=== PATIENT | male | born 1940 | race Caucasian/White ===

== ENCOUNTER 2016-10-17 13:21 | Inpatient (IN) | payer MEDICARE ==
[~2016-10-17] VITALS: Ht 182.9 cm; Wt 98.1 kg
[~2016-10-17 13:21] MED LIST: CARV25TA2 PO; CHOL200074 PO; CYCL10TA2 PO; OMEG500C PO; SIMV20TA3 PO; advair; hydrocodone
[2016-10-17] MEDS ORDERED: IPRATRPIUM/ALBUTEROL 0.5/2.5MG 3 ML NEBU. NEB ONE (13:45)
[2016-10-17] MEDS ORDERED: ONDANSETRON PF 4 MG/2 ML VIAL. IV PRN (13:45)
[2016-10-17] MEDS ORDERED: MORPHINE SULFATE 2 MG/ML DISP.SYRIN. IV PRN (13:45)
[2016-10-17] MEDS ORDERED: methylPREDNISolone SOD SUCC PF 125 MG/2 ML VIAL. IV ONE (13:45)
--- NOTE | 2016-10-17 14:06 | RAD ---
Indication chest pain and shortness of air A single view of the chest was obtained. Comparison is made to an examination 06/25/2010. The heart and pulmonary vessels are within normal limits. Acute parenchymal infiltrate in either lung is not seen. Significant pleural fluid is not present. There is no pneumothorax. IMPRESSION: No acute or focal process seen in the chest.
--- NOTE | 2016-10-17 14:13 | PHYS DOC ---
Past Medical History Past Medical History: CAD, COPD, Diverticulosis, Hypertension Additional Past Medical Histor: Osteoarthritis Past Surgical History: Appendectomy, Tonsillectomy Additional Past Surgical Histo: cardiac stent, hip, neck fixation with hardware , back Alcohol Use: None Drug Use: None Adult General Chief Complaint Chief Complaint: SHORTNESS OF BREATH HPI HPI 76-year-old male presenting to the emergency Department shortness of breath. He has a history of COPD and reports worsening COPD over the past few days. His triggers are changes in weather and humidity. Location lungs. Mildly improved with medications at home. Today he reports his symptoms just worsened and he needed to come into the hospital. It is worse with exertion. Nonradiating. He denies any pain. Review of systems was negative for chest pain abdominal pain nausea vomiting fevers chills cough. All other review of systems is negative unless otherwise noted in history of present illness. ED course: 76-year-old gentleman presenting to the emergency department today with worsening shortness of breath. Patient is at baseline at home on 4 L nasal cannula. The patient was continued on 4 L here and saturating mid 90s. Pertinent physical examination showed diffuse wheezing in the lungs bilaterally with prolonged respiratory phase and prolonged inspiratory phase. The patient was given nebulizer DuoNeb in the emergency department along with corticosteroids and then admitted for a COPD exacerbation. The patient was admitted to Dr. Avalos for further evaluation workup and care. I placed a pulmonary consult in. EKG and blood work obtained. EKG of the patient shows sinus rhythm with a regular rate. [place] is mildly leftward. Intervals are within normal limits. ST segments are congruent. Of note there are frequent PVCs. Cardiology was consulted as well. Review of Systems Review of Systems SEE ABOVE. Current Medications Current Medications Current Medications Medications (Trade) Dose Ordered Sig/Jackson Start Time Stop Time Status Last Admin Dose Admin Albuterol/ Ipratropium (Duoneb) 3 ml RTQID 10/17/16 16:00 10/18/16 15:59 Methylprednisolone Sodium Succinate (SOLU-Medrol 125MG VIAL) 125 mg 1X ONCE 10/17/16 13:45 10/17/16 13:46 DC Morphine Sulfate 2 mg PRN Q2HR PRN 10/17/16 13:45 10/18/16 13:44 Ondansetron HCl (Zofran) 4 mg PRN Q8HRS PRN 10/17/16 13:45 10/18/16 13:44 Allergies Allergies Allergies Coded Allergies Type Severity Reaction Last Updated Verified Penicillins Allergy Unknown swelling 08/17/13 Yes Physical Exam Physical Exam SEE ABOVE Constitutional: Well developed, well nourished, no acute distress, non-toxic appearance. [] HENT: Normocephalic, atraumatic, bilateral external ears normal, oropharynx moist, no oral exudates, nose normal. [] Eyes: PERRLA, EOMI, conjunctiva normal, no discharge. [] Neck: Normal range of motion, no tenderness, supple, no stridor. [] Cardiovascular:Heart rate regular rhythm, no murmur [] Lungs & Thorax: SEE ABOVE Abdomen: Bowel sounds normal, soft, no tenderness, no masses, no pulsatile masses. [] Skin: Warm, dry, no erythema, no rash. [] Back: No tenderness, no CVA tenderness. [] Extremities: No tenderness, no cyanosis, no clubbing, ROM intact, no edema. [] Neurologic: Alert and oriented X 3, normal motor function, normal sensory function, no focal deficits noted. [] Psychologic: Affect normal, judgement normal, mood normal. [] Current Patient Data Vital Signs Vital Signs Date Time Temp Pulse Resp B/P (MAP) Pulse Ox O2 Delivery O2 Flow Rate FiO2 10/17/16 13:50 97 Nasal Cannula 4.0 10/17/16 13:27 98.1 61 22 156/100 (118) 98.1 EKG EKG [] Radiology/Procedures Radiology/Procedures Chest x-ray reviewed by myself shows no obvious infiltrate or pneumothorax present. No obvious acute cardiopulmonary process present.[] Course & Med Decision Making Course & Med Decision Making Pertinent Labs and Imaging studies reviewed. (See chart for details) [] Dragon Disclaimer Dragon Disclaimer This electronic medical record was generated, in whole or in part, using a voice recognition dictation system. Departure Departure Impression: Primary Impression: COPD (chronic obstructive pulmonary disease) Additional Impressions: COPD exacerbation Shortness of breath Disposition: ADMITTED INPATIENT Admitting Physician: Berenice Avalos Condition: STABLE Problem Qualifiers VERENICE ALAS MD Oct 17, 2016 14:13
--- NOTE | 2016-10-17 14:17 | EKG ---
[facility] [address] [place] [address] Test Date: 2016-10-17 Test Time: 13:29:21 Pat Name: MELISA JARRELL Department: Room: Gender: M Director Of Philanthropy: : 1940 Requested By: VERENICE ALAS Order Number: [id number] Reading MD: Measurements Intervals [place] Rate: 90 P: 63 RI: 188 QRS: -36 QRSD: 94 T: 56 QT: 364 QTc: 449 Interpretive Statements SINUS RHYTHM VENTRICULAR PREMATURE COMPLEX(ES), BIGEMINY ABNORMAL LEFT AXIS DEVIATION LEFT ANTERIOR FASCICULAR BLOCK RI6.01 Unconfirmed report No previous ECG available for comparison
[2016-10-17 14:24] LABS: BASO # 0.2 x10^3/uL (0.0-0.2); BASO % 2 % (0-3); EOS % 12 % (0-3); HEMATOCRIT 47.2 % (39.0-53.0); HEMOGLOBIN 16.2 g/dL (13.0-17.5); LYMPH # 1.8 x10^3/uL (1.0-4.8); LYMPH % 19 % (24-48); MEAN CORPUSCULAR HEMOGLOBIN 30 pg (25-35); MEAN CORPUSCULAR HGB CONC 34 g/dL (31-37); MEAN CORPUSCULAR VOLUME 88 fL (79-100); MONO % 9 % (0-9); NEUT % 58 % (31-73); PLATELET COUNT 224 x10^3/uL (140-400); RED BLOOD COUNT 5.34 x10^6/uL (4.30-5.70); RED CELL DISTRIBUTION WIDTH 13.7 % (11.5-14.5); WHITE BLOOD COUNT 9.4 x10^3/uL (4.0-11.0)
[2016-10-17 14:40] LABS: CALCIUM 9.6 mg/dL (8.5-10.1); CREATININE 0.8 mg/dL (0.7-1.3); GFR 94.2; POTASSIUM 3.8 mmol/L (3.5-5.1)
[2016-10-17 14:46] LABS: DIRECT BILIRUBIN 0.2 mg/dL (0.0-0.2); TOTAL BILIRUBIN 0.8 mg/dL (0.2-1.0)
[2016-10-17 15:50] VITALS: BP 147/89
[2016-10-17 15:51] VITALS: BP 147/89
[2016-10-17] MEDS ORDERED: IPRATRPIUM/ALBUTEROL 0.5/2.5MG 3 ML NEBU. NEB SCH (16:00)
[2016-10-17] MEDS ORDERED: GLIM1TAB2 PO (18:41)
[2016-10-17] MEDS ORDERED: UMEC62.5 IH (18:41)
[2016-10-17] MEDS ORDERED: OMEP20TA63 PO (18:41)
[2016-10-17] MEDS ORDERED: PROAIR HFA8.5 GM INH (18:41)
[2016-10-17] MEDS ORDERED: HYDR-2758 PO (18:41)
--- NOTE | 2016-10-17 18:50 | PDOC1 ---
History and Physical Date of Admission Date of Admission DATE: 10/17/16 TIME: 18:47 History of Present Illness History of Present Illness Elderly male who quit smoking 10 years ago pesented with soa. Noted to have hypoxia and resp failure DW ER Doc and family Pt seen and examined Renewed home meds Plan is admit with consult to pulmonary medicine. O2, steroids, Nebs Total time 32 minutes Current Problem List Problem List Problems Medical Problems: (1) COPD exacerbation Status: Acute (2) Shortness of breath Status: Acute Problems: Current Medications Current Medications Current Medications Albuterol/ Ipratropium (Duoneb) 3 ml 1X ONCE NEB Last administered on 13:49; Start 10/17/16 at 13:45; Stop 10/17/16 at 13:46; Status DC Methylprednisolone Sodium Succinate (SOLU-Medrol 125MG VIAL) 125 mg 1X ONCE IV Last administered on 10/17/16 14:06; Start 10/17/16 at 13:45; Stop 10/17/16 at 13:46; Status DC Ondansetron HCl (Zofran) 4 mg PRN Q8HRS PRN IV NAUSEA/VOMITING Last administered on 10/17/16 14:06; Start 10/17/16 at 13:45; Stop 10/18/16 at 13:44 Morphine Sulfate 2 mg PRN Q2HR PRN IV PAIN Last administered on 10/17/16 14:07 ; Start 10/17/16 at 13:45; Stop 10/18/16 at 13:44 Albuterol/ Ipratropium (Duoneb) 3 ml RTQID NEB Last administered on 10/17/16 16:05; Start 10/17/16 at 16:00; Stop 10/18/16 at 15:59 Active Scripts Active Reported Proair Hfa Inhaler (Albuterol Sulfate) 8.5 Gm Hfa.aer.ad 1 Puff INH PRN Q6HRS PRN Prilosec Otc (Omeprazole Magnesium) 20 Mg Tablet.dr 1 Tab PO DAILY Incruse Ellipta (Umeclidinium Harned) 62.5 Mcg Blst.w.dev 62.5 Mcg IH DAILY Glimepiride 1 Mg Tablet 1 Tab PO DAILY Hydrocodone-Apap 5-325 (Hydrocodone Bit/Acetaminophen) 1 Each Tablet 1 Tab PO PRN Q6HRS PRN Simvastatin 20 Mg Tablet 20 Mg PO Cyclobenzaprine Hcl 10 Mg Tablet 10 Mg PO Carvedilol 25 Mg Tablet 25 Mg PO BID Allergies Allergies: Coded Allergies: Penicillins (Verified Allergy, Unknown, swelling, 08/17/13) Vitals Vitals Vital Signs Date Time Temp Pulse Resp B/P (MAP) Pulse Ox O2 Delivery O2 Flow Rate FiO2 10/17/16 16:51 Nasal Cannula 4.0 10/17/16 16:05 97 10/17/16 15:51 97.8 85 22 147/89 (108) 97.8 Labs Labs Laboratory Tests Test 10/17/16 14:15 White Blood Count 9.4 x10^3/uL (4.0-11.0) Red Blood Count 5.34 x10^6/uL (4.30-5.70) Hemoglobin 16.2 g/dL (13.0-17.5) Hematocrit 47.2 % (39.0-53.0) Mean Corpuscular Volume 88 fL (79-100) Mean Corpuscular Hemoglobin 30 pg (25-35) Mean Corpuscular Hemoglobin Concent 34 g/dL (31-37) Red Cell Distribution Width 13.7 % (11.5-14.5) Platelet Count 224 x10^3/uL (140-400) Neutrophils (%) (Auto) 58 % (31-73) Lymphocytes (%) (Auto) 19 % (24-48) Monocytes (%) (Auto) 9 % (0-9) Eosinophils (%) (Auto) 12 % (0-3) Basophils (%) (Auto) 2 % (0-3) Neutrophils # (Auto) 5.4 x10^3uL (1.8-7.7) Lymphocytes # (Auto) 1.8 x10^3/uL (1.0-4.8) Monocytes # (Auto) 0.8 x10^3/uL (0.0-1.1) Eosinophils # (Auto) 1.1 x10^3/uL (0.0-0.7) Basophils # (Auto) 0.2 x10^3/uL (0.0-0.2) Sodium Level 140 mmol/L (136-145) Potassium Level 3.8 mmol/L (3.5-5.1) Chloride Level 102 mmol/L (98-107) Carbon Dioxide Level 31 mmol/L (21-32) Anion Gap 7 (6-14) Blood Urea Nitrogen 9 mg/dL (8-26) Creatinine 0.8 mg/dL (0.7-1.3) Estimated GFR (Cockcroft-Gault) 94.2 Glucose Level 148 mg/dL (70-99) Calcium Level 9.6 mg/dL (8.5-10.1) Total Bilirubin 0.8 mg/dL (0.2-1.0) Direct Bilirubin 0.2 mg/dL (0.0-0.2) Aspartate Amino Transf (AST/SGOT) 18 U/L (15-37) Alanine Aminotransferase (ALT/SGPT) 26 U/L (16-63) Alkaline Phosphatase 109 U/L (46-116) Troponin I Quantitative < 0.017 ng/mL (0.000-0.055) NR-Dzs-A-Type Natriuretic Peptide 92 pg/mL (0-449) Total Protein 8.0 g/dL (6.4-8.2) Albumin 4.0 g/dL (3.4-5.0) Lipase 116 U/L (73-393) Laboratory Tests Test 10/17/16 14:15 White Blood Count 9.4 x10^3/uL (4.0-11.0) Red Blood Count 5.34 x10^6/uL (4.30-5.70) Hemoglobin 16.2 g/dL (13.0-17.5) Hematocrit 47.2 % (39.0-53.0) Mean Corpuscular Volume 88 fL (79-100) Mean Corpuscular Hemoglobin 30 pg (25-35) Mean Corpuscular Hemoglobin Concent 34 g/dL (31-37) Red Cell Distribution Width 13.7 % (11.5-14.5) Platelet Count 224 x10^3/uL (140-400) Neutrophils (%) (Auto) 58 % (31-73) Lymphocytes (%) (Auto) 19 % (24-48) Monocytes (%) (Auto) 9 % (0-9) Eosinophils (%) (Auto) 12 % (0-3) Basophils (%) (Auto) 2 % (0-3) Neutrophils # (Auto) 5.4 x10^3uL (1.8-7.7) Lymphocytes # (Auto) 1.8 x10^3/uL (1.0-4.8) Monocytes # (Auto) 0.8 x10^3/uL (0.0-1.1) Eosinophils # (Auto) 1.1 x10^3/uL (0.0-0.7) Basophils # (Auto) 0.2 x10^3/uL (0.0-0.2) Sodium Level 140 mmol/L (136-145) Potassium Level 3.8 mmol/L (3.5-5.1) Chloride Level 102 mmol/L (98-107) Carbon Dioxide Level 31 mmol/L (21-32) Anion Gap 7 (6-14) Blood Urea Nitrogen 9 mg/dL (8-26) Creatinine 0.8 mg/dL (0.7-1.3) Estimated GFR (Cockcroft-Gault) 94.2 Glucose Level 148 mg/dL (70-99) Calcium Level 9.6 mg/dL (8.5-10.1) Total Bilirubin 0.8 mg/dL (0.2-1.0) Direct Bilirubin 0.2 mg/dL (0.0-0.2) Aspartate Amino Transf (AST/SGOT) 18 U/L (15-37) Alanine Aminotransferase (ALT/SGPT) 26 U/L (16-63) Alkaline Phosphatase 109 U/L (46-116) Troponin I Quantitative < 0.017 ng/mL (0.000-0.055) QS-Dxp-D-Type Natriuretic Peptide 92 pg/mL (0-449) Total Protein 8.0 g/dL (6.4-8.2) Albumin 4.0 g/dL (3.4-5.0) Lipase 116 U/L (73-393) VTE Prophylaxis Ordered VTE Prophylaxis Devices: Yes VTE Pharmacological Prophylaxi: Yes SANDER AGUILAR III DO Oct 17, 2016 18:50
[2016-10-17 19:00] VITALS: BP 139/78
[2016-10-17] MEDS ORDERED: ALBUTEROL SULFATE 2.5 MG/3 ML NEBU. NEB PRN ×2 (19:00→19:15)
[2016-10-17] MEDS ORDERED: NON FORMULARY ITEM (Albuterol Sulfate (Proair Hfa Inhaler) 1 PUFF) INH PRN (19:00)
[2016-10-17] MEDS ORDERED: CYCLOBENZAPRINE 10 MG TABLET. PO PRN (19:00)
--- NOTE | 2016-10-17 19:11 | PDOC2 ---
CONSULT Date of Consult Date of Consult DATE: 10/17/16 TIME: 18:59 Reason for Consult Reason for Consult: RECURRENT AECOPD Referring Physician Referring Physician: DR AGUILAR Identification/Chief Complaint Chief Complaint INCREASE SOA COUGH Problems: Source Source: Chart review, Patient History of Present Illness Reason for Visit: PT FAILED OUTPT TREATMENT FOR AECOPD SAW DR holley Holt ON TWO OCCASIONS LAST VIST HAD A CT OF CHEST WHCH WAS NORMAL EXCEPT FOR CALCIFIED NODULES PT STARTED ON 2 3 WEEKS AGO NOW MORE SOA AND COUGH NON PRODUCTIVE QUIT TOBACCO SOME TIME AGO NO NEW INHALATIONS OF TOXIC FUMES OR DUST NOW NEW HOBBIES OR PETS IN HOARSE DENIES F/C/N/V/ D Past Medical History Cardiovascular: CAD, HTN Pulmonary: Bronchitis, COPD, Other (CHRONIC RESP FAILURE) GI: Diverticulosis Past Surgical History Past Surgical History: Appendectomy, Tonsillectomy, Other (CARDIAC STENT) Family History Family History NO LUNG DZ Social History No ALCOHOL: none Current Problem List Problem List Problems Medical Problems: (1) COPD exacerbation Status: Acute (2) Shortness of breath Status: Acute Current Medications Current Medications Current Medications Albuterol/ Ipratropium (Duoneb) 3 ml 1X ONCE NEB Last administered on 13:49; Start 10/17/16 at 13:45; Stop 10/17/16 at 13:46; Status DC Methylprednisolone Sodium Succinate (SOLU-Medrol 125MG VIAL) 125 mg 1X ONCE IV Last administered on 10/17/16 14:06; Start 10/17/16 at 13:45; Stop 10/17/16 at 13:46; Status DC Ondansetron HCl (Zofran) 4 mg PRN Q8HRS PRN IV NAUSEA/VOMITING Last administered on 10/17/16 14:06; Start 10/17/16 at 13:45; Stop 10/18/16 at 13:44 Morphine Sulfate 2 mg PRN Q2HR PRN IV PAIN Last administered on 10/17/16 14:07 ; Start 10/17/16 at 13:45; Stop 10/18/16 at 13:44 Albuterol/ Ipratropium (Duoneb) 3 ml RTQID NEB Last administered on 10/17/16 16:05; Start 10/17/16 at 16:00; Stop 10/18/16 at 15:59 Cyclobenzaprine HCl (Flexeril) 10 mg QIDPRN PRN PO MUSCLE; Start 10/17/16 at 19 :00 Acetaminophen/ Hydrocodone Bitart (Lortab 5/325) 1 tab PRN Q6HRS PRN PO PAIN; Start 10/17/16 at 19:00 Simvastatin (Zocor) 20 mg QHS PO ; Start 10/17/16 at 21:00 Non-Formulary Medication 1 puff PRN Q6HRS PRN INH SHORTNESS OF BREATH; Start at 19:00; Stop 10/17/16 at 19:00; Status DC Carvedilol (Coreg) 25 mg BIDWMEALS PO ; Start 10/17/16 at 19:00 Glimepiride (Amaryl) 1 mg DAILYWBKFT PO ; Start 10/18/16 at 08:00 Pantoprazole Sodium (Protonix) 40 mg DAILYAC PO ; Start 10/18/16 at 07:30 Non-Formulary Medication 62.5 mcg DAILY IH ; Start 10/18/16 at 09:00; Status UNV Active Scripts Active Reported Proair Hfa Inhaler (Albuterol Sulfate) 8.5 Gm Hfa.aer.ad 1 Puff INH PRN Q6HRS PRN Prilosec Otc (Omeprazole Magnesium) 20 Mg Tablet.dr 1 Tab PO DAILY Incruse Ellipta (Umeclidinium [place]) 62.5 Mcg Blst.w.dev 62.5 Mcg IH DAILY Glimepiride 1 Mg Tablet 1 Tab PO DAILY Hydrocodone-Apap 5-325 (Hydrocodone Bit/Acetaminophen) 1 Each Tablet 1 Tab PO PRN Q6HRS PRN Simvastatin 20 Mg Tablet 20 Mg PO Cyclobenzaprine Hcl 10 Mg Tablet 10 Mg PO Carvedilol 25 Mg Tablet 25 Mg PO BID Allergies Allergies: Coded Allergies: Penicillins (Verified Allergy, Unknown, swelling, 08/17/13) ROS Review of System PER HPI Vitals VITALS Vital Signs Date Time Temp Pulse Resp B/P (MAP) Pulse Ox O2 Delivery O2 Flow Rate FiO2 10/17/16 16:51 Nasal Cannula 4.0 10/17/16 16:05 97 10/17/16 15:51 97.8 85 22 147/89 (108) 97.8 Labs Labs Laboratory Tests Test 10/17/16 14:15 White Blood Count 9.4 x10^3/uL (4.0-11.0) Red Blood Count 5.34 x10^6/uL (4.30-5.70) Hemoglobin 16.2 g/dL (13.0-17.5) Hematocrit 47.2 % (39.0-53.0) Mean Corpuscular Volume 88 fL (79-100) Mean Corpuscular Hemoglobin 30 pg (25-35) Mean Corpuscular Hemoglobin Concent 34 g/dL (31-37) Red Cell Distribution Width 13.7 % (11.5-14.5) Platelet Count 224 x10^3/uL (140-400) Neutrophils (%) (Auto) 58 % (31-73) Lymphocytes (%) (Auto) 19 % (24-48) Monocytes (%) (Auto) 9 % (0-9) Eosinophils (%) (Auto) 12 % (0-3) Basophils (%) (Auto) 2 % (0-3) Neutrophils # (Auto) 5.4 x10^3uL (1.8-7.7) Lymphocytes # (Auto) 1.8 x10^3/uL (1.0-4.8) Monocytes # (Auto) 0.8 x10^3/uL (0.0-1.1) Eosinophils # (Auto) 1.1 x10^3/uL (0.0-0.7) Basophils # (Auto) 0.2 x10^3/uL (0.0-0.2) Sodium Level 140 mmol/L (136-145) Potassium Level 3.8 mmol/L (3.5-5.1) Chloride Level 102 mmol/L (98-107) Carbon Dioxide Level 31 mmol/L (21-32) Anion Gap 7 (6-14) Blood Urea Nitrogen 9 mg/dL (8-26) Creatinine 0.8 mg/dL (0.7-1.3) Estimated GFR (Cockcroft-Gault) 94.2 Glucose Level 148 mg/dL (70-99) Calcium Level 9.6 mg/dL (8.5-10.1) Total Bilirubin 0.8 mg/dL (0.2-1.0) Direct Bilirubin 0.2 mg/dL (0.0-0.2) Aspartate Amino Transf (AST/SGOT) 18 U/L (15-37) Alanine Aminotransferase (ALT/SGPT) 26 U/L (16-63) Alkaline Phosphatase 109 U/L (46-116) Troponin I Quantitative < 0.017 ng/mL (0.000-0.055) BO-Fvt-I-Type Natriuretic Peptide 92 pg/mL (0-449) Total Protein 8.0 g/dL (6.4-8.2) Albumin 4.0 g/dL (3.4-5.0) Lipase 116 U/L (73-393) Laboratory Tests Test 10/17/16 14:15 White Blood Count 9.4 x10^3/uL (4.0-11.0) Red Blood Count 5.34 x10^6/uL (4.30-5.70) Hemoglobin 16.2 g/dL (13.0-17.5) Hematocrit 47.2 % (39.0-53.0) Mean Corpuscular Volume 88 fL (79-100) Mean Corpuscular Hemoglobin 30 pg (25-35) Mean Corpuscular Hemoglobin Concent 34 g/dL (31-37) Red Cell Distribution Width 13.7 % (11.5-14.5) Platelet Count 224 x10^3/uL (140-400) Neutrophils (%) (Auto) 58 % (31-73) Lymphocytes (%) (Auto) 19 % (24-48) Monocytes (%) (Auto) 9 % (0-9) Eosinophils (%) (Auto) 12 % (0-3) Basophils (%) (Auto) 2 % (0-3) Neutrophils # (Auto) 5.4 x10^3uL (1.8-7.7) Lymphocytes # (Auto) 1.8 x10^3/uL (1.0-4.8) Monocytes # (Auto) 0.8 x10^3/uL (0.0-1.1) Eosinophils # (Auto) 1.1 x10^3/uL (0.0-0.7) Basophils # (Auto) 0.2 x10^3/uL (0.0-0.2) Sodium Level 140 mmol/L (136-145) Potassium Level 3.8 mmol/L (3.5-5.1) Chloride Level 102 mmol/L (98-107) Carbon Dioxide Level 31 mmol/L (21-32) Anion Gap 7 (6-14) Blood Urea Nitrogen 9 mg/dL (8-26) Creatinine 0.8 mg/dL (0.7-1.3) Estimated GFR (Cockcroft-Gault) 94.2 Glucose Level 148 mg/dL (70-99) Calcium Level 9.6 mg/dL (8.5-10.1) Total Bilirubin 0.8 mg/dL (0.2-1.0) Direct Bilirubin 0.2 mg/dL (0.0-0.2) Aspartate Amino Transf (AST/SGOT) 18 U/L (15-37) Alanine Aminotransferase (ALT/SGPT) 26 U/L (16-63) Alkaline Phosphatase 109 U/L (46-116) Troponin I Quantitative < 0.017 ng/mL (0.000-0.055) OS-Akr-Q-Type Natriuretic Peptide 92 pg/mL (0-449) Total Protein 8.0 g/dL (6.4-8.2) Albumin 4.0 g/dL (3.4-5.0) Lipase 116 U/L (73-393) Assessment/Plan Assessment/Plan A/C RESP FAILURE AECOPD FAILED OUT PT TREATMENT PT SEEN TWICE IN OFFICE ACUTE BRONCHITIS HTN CAD TOBACCO DEPENDENCE IN REMISSION PLAN 02 NEBS IV STEROIDS ANTIBX JER SPIVEY MD Oct 17, 2016 19:11
[2016-10-17] MEDS: CARVEDILOL 12.5 MG TABLET. PO SCH (19:34)
[2016-10-17] MEDS: HYDROcodone/APAP 5/325MG 1 TAB TABLET PO PRN (19:34)
[2016-10-17] MEDS: IPRATRPIUM/ALBUTEROL 0.5/2.5MG 3 ML NEBU. NEB SCH (19:56)
[2016-10-17] MEDS: SIMVASTATIN 20 MG TABLET PO SCH (20:23)
[2016-10-17] MEDS: methylPREDNISolone SOD SUCC PF 125 MG/2 ML VIAL. IV SCH (20:28)
[2016-10-17 23:00] VITALS: BP 116/69
--- NOTE | 2016-10-17 23:09 | ACF ---
Admission Forms Criteria COPD Clinical Indications for Admission to Inpatient Care (Place 'X' for any and all applicable criteria): Admission is indicated for ANY ONE of the following (1)(2)(3): [X]I. Acute exacerbation by high-risk comorbidity (e.g., pneumonia, dysrhythmia, heart failure, pleural effusion, pneumothorax) or severe underlying COPD (e.g., steroid dependent) [ ]II. Inpatient admission required rather than observation care (see Chronic Obstructive Pulmonary Disease: Observation Care) because of ANY ONE of the following: [ ]a) New or pre-existing signs or symptoms of COPD (eg, dyspnea or Tachypnea at rest or with minimal activity) that persist despite outpatient and observation care treatment [ ]b) New-onset hypoxemia (room air SaO2 less than 90%, PO2 less than 60 mm Hg (8.0 kPa)) that persists despite outpatient and observation care treatment [ ]c) Worsening of pre-existing hypoxemia (eg, new or increased requirement for supplemental oxygen to maintain oxygenation at baseline level) that persists despite outpatient and observation care treatment, with oxygen treatment needs performable only in acute inpatient setting [ ]d) Hypercarbia (PCO2 greater than 40 mm Hg (5.3 kPa))-induced respiratory acidosis (pH less than 7.35) that persists despite outpatient and observation care treatment [ ]e) Supplemental oxygen or respiratory treatments for over 24 hours that are performable only in acute inpatient setting [ ]f) Chest tube placement with active evacuation (e.g., suction, drainage) (5) [ ]g) Other condition, treatment or monitoring requiring inpatient admission [ ]III. Planned invasive surgical or diagnostic procedures requiring acute- care hospitalization [ ]IV. Acute respiratory failure (e.g., uncompensated hypercarbia, severe hypoxemia) [ ]V. Severe comorbid condition (e.g., severe steroid myopathy, acute vertebral fracture) that has acutely worsened pulmonary function [ ]. Confusion state, lethargy, obtundation, stupor or coma Extended stay beyond goal length of stay may be needed for (31)(32): [ ]a ) Respiratory Failure. [ ]b) Severe or persisting hypoxemia or hypercarbia [ ]c) Severe or persistent dyspnea [ ]d) Comorbidities (e.g. chronic heart failure, atrial fibrillation with rapid response, pneumonia) [ ]e) Malnutrition The original [facility] content created by [facility] has been revised. The portions of the content which have been revised are identified through the use of italic text or in bold, and [facility] has neither reviewed nor approved the modified material. All other unmodified content is copyright [facility]. Please see references footnoted in the original [facility] edition 2016 Admission Criteria Met?: Yes ODALYS FLORES Oct 17, 2016 23:09
[2016-10-18 03:00] VITALS: BP 132/79
[2016-10-18 07:15] VITALS: BP 141/75
[2016-10-18] MEDS: IPRATRPIUM/ALBUTEROL 0.5/2.5MG 3 ML NEBU. NEB SCH ×4 (07:58→19:40)
[2016-10-18] MEDS: PANTOPRAZOLE 40 MG TABLET.DR. PO SCH (08:24)
[2016-10-18] MEDS: GLIMEPIRIDE 2 MG TABLET. PO SCH (08:24)
[2016-10-18] MEDS: CARVEDILOL 12.5 MG TABLET. PO SCH ×2 (08:25→15:38)
[2016-10-18] MEDS: methylPREDNISolone SOD SUCC PF 125 MG/2 ML VIAL. IV SCH ×2 (08:26→21:16)
[2016-10-18] MEDS ORDERED: NON FORMULARY ITEM (Umeclidinium Bromide (Incruse Ellipta) 62.5 MCG) IH SCH (09:00)
[2016-10-18] MEDS ORDERED: ONDANSETRON PF 4 MG/2 ML VIAL. IV PRN ×2 (10:36→10:45)
[2016-10-18 11:23] VITALS: BP 129/68
--- NOTE | 2016-10-18 12:14 | PDOC ---
PROGRESS NOTES Chief Complaint Chief Complaint A/C RESP FAILURE AECOPD FAILED OUT PT TREATMENT PT SEEN TWICE IN OFFICE ACUTE BRONCHITIS HTN CAD TOBACCO DEPENDENCE IN REMISSION History of Present Illness History of Present Illness NEbs seem to loosen the cough Then back again feeling some congestion on anterior chest Pulmo note reviewed, very well known to their practice PLAN: CPM Add PT/OT Add second cough agent if needed Dw pt Vitals Vitals Vital Signs Date Time Temp Pulse Resp B/P (MAP) Pulse Ox O2 Delivery O2 Flow Rate FiO2 10/18/16 11:57 Nasal Cannula 4.0 10/18/16 11:23 98.3 87 19 129/68 (88) 95 98.3 Physical Exam General: Alert, Oriented X3, Cooperative Heart: Regular rate, Normal S1, Normal S2 Lungs: Other (dec BS< no crackels,) Abdomen: Normal bowel sounds, Soft, No tenderness Extremities: No clubbing, No cyanosis, No edema, Normal pulses Skin: No rashes, No breakdown, No significant lesion Labs LABS Laboratory Tests Test 10/17/16 14:15 White Blood Count 9.4 x10^3/uL (4.0-11.0) Red Blood Count 5.34 x10^6/uL (4.30-5.70) Hemoglobin 16.2 g/dL (13.0-17.5) Hematocrit 47.2 % (39.0-53.0) Mean Corpuscular Volume 88 fL (79-100) Mean Corpuscular Hemoglobin 30 pg (25-35) Mean Corpuscular Hemoglobin Concent 34 g/dL (31-37) Red Cell Distribution Width 13.7 % (11.5-14.5) Platelet Count 224 x10^3/uL (140-400) Neutrophils (%) (Auto) 58 % (31-73) Lymphocytes (%) (Auto) 19 % (24-48) Monocytes (%) (Auto) 9 % (0-9) Eosinophils (%) (Auto) 12 % (0-3) Basophils (%) (Auto) 2 % (0-3) Neutrophils # (Auto) 5.4 x10^3uL (1.8-7.7) Lymphocytes # (Auto) 1.8 x10^3/uL (1.0-4.8) Monocytes # (Auto) 0.8 x10^3/uL (0.0-1.1) Eosinophils # (Auto) 1.1 x10^3/uL (0.0-0.7) Basophils # (Auto) 0.2 x10^3/uL (0.0-0.2) Sodium Level 140 mmol/L (136-145) Potassium Level 3.8 mmol/L (3.5-5.1) Chloride Level 102 mmol/L (98-107) Carbon Dioxide Level 31 mmol/L (21-32) Anion Gap 7 (6-14) Blood Urea Nitrogen 9 mg/dL (8-26) Creatinine 0.8 mg/dL (0.7-1.3) Estimated GFR (Cockcroft-Gault) 94.2 Glucose Level 148 mg/dL (70-99) Calcium Level 9.6 mg/dL (8.5-10.1) Total Bilirubin 0.8 mg/dL (0.2-1.0) Direct Bilirubin 0.2 mg/dL (0.0-0.2) Aspartate Amino Transf (AST/SGOT) 18 U/L (15-37) Alanine Aminotransferase (ALT/SGPT) 26 U/L (16-63) Alkaline Phosphatase 109 U/L (46-116) Troponin I Quantitative < 0.017 ng/mL (0.000-0.055) W[place]-Ale-A-Type Natriuretic Peptide 92 pg/mL (0-449) Total Protein 8.0 g/dL (6.4-8.2) Albumin 4.0 g/dL (3.4-5.0) Lipase 116 U/L (73-393) Review of Systems Review of Systems coughing,all else is neg Assessment and Plan Assessmemt and Plan Problems Medical Problems: (1) COPD exacerbation Status: Acute (2) Shortness of breath Status: Acute Problems: Comment Review of Relevant I have reviewed the following items mary (where applicable) has been applied. Labs Laboratory Tests Test 10/17/16 14:15 White Blood Count 9.4 x10^3/uL (4.0-11.0) Red Blood Count 5.34 x10^6/uL (4.30-5.70) Hemoglobin 16.2 g/dL (13.0-17.5) Hematocrit 47.2 % (39.0-53.0) Mean Corpuscular Volume 88 fL (79-100) Mean Corpuscular Hemoglobin 30 pg (25-35) Mean Corpuscular Hemoglobin Concent 34 g/dL (31-37) Red Cell Distribution Width 13.7 % (11.5-14.5) Platelet Count 224 x10^3/uL (140-400) Neutrophils (%) (Auto) 58 % (31-73) Lymphocytes (%) (Auto) 19 % (24-48) Monocytes (%) (Auto) 9 % (0-9) Eosinophils (%) (Auto) 12 % (0-3) Basophils (%) (Auto) 2 % (0-3) Neutrophils # (Auto) 5.4 x10^3uL (1.8-7.7) Lymphocytes # (Auto) 1.8 x10^3/uL (1.0-4.8) Monocytes # (Auto) 0.8 x10^3/uL (0.0-1.1) Eosinophils # (Auto) 1.1 x10^3/uL (0.0-0.7) Basophils # (Auto) 0.2 x10^3/uL (0.0-0.2) Sodium Level 140 mmol/L (136-145) Potassium Level 3.8 mmol/L (3.5-5.1) Chloride Level 102 mmol/L (98-107) Carbon Dioxide Level 31 mmol/L (21-32) Anion Gap 7 (6-14) Blood Urea Nitrogen 9 mg/dL (8-26) Creatinine 0.8 mg/dL (0.7-1.3) Estimated GFR (Cockcroft-Gault) 94.2 Glucose Level 148 mg/dL (70-99) Calcium Level 9.6 mg/dL (8.5-10.1) Total Bilirubin 0.8 mg/dL (0.2-1.0) Direct Bilirubin 0.2 mg/dL (0.0-0.2) Aspartate Amino Transf (AST/SGOT) 18 U/L (15-37) Alanine Aminotransferase (ALT/SGPT) 26 U/L (16-63) Alkaline Phosphatase 109 U/L (46-116) Troponin I Quantitative < 0.017 ng/mL (0.000-0.055) MK-Ewl-M-Type Natriuretic Peptide 92 pg/mL (0-449) Total Protein 8.0 g/dL (6.4-8.2) Albumin 4.0 g/dL (3.4-5.0) Lipase 116 U/L (73-393) Laboratory Tests Test 10/17/16 14:15 White Blood Count 9.4 x10^3/uL (4.0-11.0) Red Blood Count 5.34 x10^6/uL (4.30-5.70) Hemoglobin 16.2 g/dL (13.0-17.5) Hematocrit 47.2 % (39.0-53.0) Mean Corpuscular Volume 88 fL (79-100) Mean Corpuscular Hemoglobin 30 pg (25-35) Mean Corpuscular Hemoglobin Concent 34 g/dL (31-37) Red Cell Distribution Width 13.7 % (11.5-14.5) Platelet Count 224 x10^3/uL (140-400) Neutrophils (%) (Auto) 58 % (31-73) Lymphocytes (%) (Auto) 19 % (24-48) Monocytes (%) (Auto) 9 % (0-9) Eosinophils (%) (Auto) 12 % (0-3) Basophils (%) (Auto) 2 % (0-3) Neutrophils # (Auto) 5.4 x10^3uL (1.8-7.7) Lymphocytes # (Auto) 1.8 x10^3/uL (1.0-4.8) Monocytes # (Auto) 0.8 x10^3/uL (0.0-1.1) Eosinophils # (Auto) 1.1 x10^3/uL (0.0-0.7) Basophils # (Auto) 0.2 x10^3/uL (0.0-0.2) Sodium Level 140 mmol/L (136-145) Potassium Level 3.8 mmol/L (3.5-5.1) Chloride Level 102 mmol/L (98-107) Carbon Dioxide Level 31 mmol/L (21-32) Anion Gap 7 (6-14) Blood Urea Nitrogen 9 mg/dL (8-26) Creatinine 0.8 mg/dL (0.7-1.3) Estimated GFR (Cockcroft-Gault) 94.2 Glucose Level 148 mg/dL (70-99) Calcium Level 9.6 mg/dL (8.5-10.1) Total Bilirubin 0.8 mg/dL (0.2-1.0) Direct Bilirubin 0.2 mg/dL (0.0-0.2) Aspartate Amino Transf (AST/SGOT) 18 U/L (15-37) Alanine Aminotransferase (ALT/SGPT) 26 U/L (16-63) Alkaline Phosphatase 109 U/L (46-116) Troponin I Quantitative < 0.017 ng/mL (0.000-0.055) KO-Fey-P-Type Natriuretic Peptide 92 pg/mL (0-449) Total Protein 8.0 g/dL (6.4-8.2) Albumin 4.0 g/dL (3.4-5.0) Lipase 116 U/L (73-393) Medications Current Medications Albuterol/ Ipratropium (Duoneb) 3 ml 1X ONCE NEB Last administered on 13:49; Start 10/17/16 at 13:45; Stop 10/17/16 at 13:46; Status DC Methylprednisolone Sodium Succinate (SOLU-Medrol 125MG VIAL) 125 mg 1X ONCE IV Last administered on 10/17/16 14:06; Start 10/17/16 at 13:45; Stop 10/17/16 at 13:46; Status DC Ondansetron HCl (Zofran) 4 mg PRN Q8HRS PRN IV NAUSEA/VOMITING Last administered on 10/17/16 14:06; Start 10/17/16 at 13:45; Stop 10/18/16 at 10:37 ; Status DC Morphine Sulfate 2 mg PRN Q2HR PRN IV PAIN Last administered on 10/17/16 14:07 ; Start 10/17/16 at 13:45; Stop 10/18/16 at 13:44 Albuterol/ Ipratropium (Duoneb) 3 ml RTQID NEB Last administered on 10/17/16 16:05; Start 10/17/16 at 16:00; Stop 10/17/16 at 19:09; Status DC Cyclobenzaprine HCl (Flexeril) 10 mg QIDPRN PRN PO MUSCLE; Start 10/17/16 at 19 :00 Acetaminophen/ Hydrocodone Bitart (Lortab 5/325) 1 tab PRN Q6HRS PRN PO PAIN Last administered on 10/17/16 19:34; Start 10/17/16 at 19:00 Simvastatin (Zocor) 20 mg QHS PO Last administered on 10/17/16 20:23; Start at 21:00 Non-Formulary Medication 1 puff PRN Q6HRS PRN INH SHORTNESS OF BREATH; Start at 19:00; Stop 10/17/16 at 19:00; Status DC Carvedilol (Coreg) 25 mg BIDWMEALS PO Last administered on 10/18/16 08:25; Start 10/17/16 at 19:00 Glimepiride (Amaryl) 1 mg DAILYWBKFT PO Last administered on 10/18/16 08:24; Start 10/18/16 at 08:00 Pantoprazole Sodium (Protonix) 40 mg DAILYAC PO Last administered on 10/18/16 08:24; Start 10/18/16 at 07:30 Non-Formulary Medication 62.5 mcg DAILY IH ; Start 10/18/16 at 09:00; Stop 10/18 at 09:00; Status DC Albuterol Sulfate (Ventolin Neb Soln) 2.5 mg PRN Q6HRS PRN NEB SHORTNESS OF BREATH; Start 10/17/16 at 19:00; Stop 10/17/16 at 19:11; Status DC Albuterol/ Ipratropium (Duoneb) 3 ml RTQID NEB Last administered on 10/18/16 11:57; Start 10/17/16 at 20:00 Albuterol Sulfate (Ventolin Neb Soln) 2.5 mg PRN Q2HR PRN NEB DYSPNEA; Start at 19:15 Methylprednisolone Sodium Succinate (SOLU-Medrol 125MG VIAL) 60 mg BID IV Last administered on 10/18/16 08:26; Start 10/17/16 at 21:00 Ondansetron HCl (Zofran) 4 mg PRN Q6HRS PRN IV NAUSEA/VOMITING; Start 10/18/16 at 10:36; Stop 10/19/16 at 10:35 Ondansetron HCl (Zofran) 4 mg PRN Q6HRS PRN IV NAUSEA/VOMITING; Start 10/18/16 at 10:45 Active Scripts Active Reported Proair Hfa Inhaler (Albuterol Sulfate) 8.5 Gm Hfa.aer.ad 1 Puff INH PRN Q6HRS PRN Prilosec Otc (Omeprazole Magnesium) 20 Mg Tablet.dr 1 Tab PO DAILY Incruse Ellipta (Umeclidinium [place]) 62.5 Mcg Blst.w.dev 62.5 Mcg IH DAILY Glimepiride 1 Mg Tablet 1 Tab PO DAILY Hydrocodone-Apap 5-325 (Hydrocodone Bit/Acetaminophen) 1 Each Tablet 1 Tab PO PRN Q6HRS PRN Simvastatin 20 Mg Tablet 20 Mg PO Cyclobenzaprine Hcl 10 Mg Tablet 10 Mg PO Carvedilol 25 Mg Tablet 25 Mg PO BID Vitals/I & O Vital Sign - Last 24 Hours 10/17/16 10/17/16 10/17/16 10/17/16 13:27 13:39 13:50 14:07 Temp 98.1 98.1 Pulse 61 92 Resp 22 30 25 B/P (MAP) 156/100 (118) 172/93 (119) Pulse Ox 94 97 97 97 O2 Delivery Nasal Cannula Nasal Cannula Nasal Cannula Room Air O2 Flow Rate 4.0 4.0 4.0 10/17/16 10/17/16 10/17/16 10/17/16 14:09 14:39 15:09 15:50 Temp 97.8 97.8 Pulse 88 85 81 85 Resp 33 25 30 22 B/P (MAP) 140/82 (101) 137/85 (102) 151/91 (111) 147/89 (108) Pulse Ox 97 97 97 94 O2 Delivery Nasal Cannula Nasal Cannula Nasal Cannula Nasal Cannula O2 Flow Rate 4.0 4.0 4.0 4.0 10/17/16 10/17/16 10/17/16 10/17/16 15:51 16:05 16:51 19:00 Temp 97.8 97.5 97.8 97.5 Pulse 85 85 Resp 22 24 B/P (MAP) 147/89 (108) 139/78 (98) Pulse Ox 94 97 95 O2 Delivery Nasal Cannula Nasal Cannula Nasal Cannula Nasal Cannula O2 Flow Rate 4.0 4.0 4.0 4.0 10/17/16 10/17/16 10/17/16 10/17/16 19:34 19:34 19:58 20:00 Pulse 92 Resp 21 B/P (MAP) 147/89 O2 Delivery Nasal Cannula Nasal Cannula Nasal Cannula O2 Flow Rate 4.0 4.0 4.0 10/17/16 10/17/16 10/18/16 10/18/16 20:34 23:00 03:00 07:15 Temp 97.9 98.2 97.5 97.9 98.2 97.5 Pulse 79 89 85 Resp 17 22 22 20 B/P (MAP) 116/69 (85) 132/79 (96) 141/75 (97) Pulse Ox 94 95 94 O2 Delivery Nasal Cannula Nasal Cannula Nasal Cannula Nasal Cannula O2 Flow Rate 4.0 4.0 4.0 4.0 10/18/16 10/18/16 10/18/16 10/18/16 07:58 08:00 08:25 11:23 Temp 98.3 98.3 Pulse 85 87 Resp 19 B/P (MAP) 141/75 129/68 (88) Pulse Ox 98 95 O2 Delivery Nasal Cannula Nasal Cannula Nasal Cannula O2 Flow Rate 4.0 4.0 4.0 10/18/16 11:57 O2 Delivery Nasal Cannula O2 Flow Rate 4.0 Intake and Output 10/17/16 10/17/16 10/18/16 15:00 23:00 07:00 Intake Total 240 ml 280 ml Balance 240 ml 280 ml LENORA TOVAR MD Oct 18, 2016 12:14
[2016-10-18] MEDS: guaiFENesin DM 200MG/20MG 10 ML SYRUP PO SCH ×3 (12:38→21:15)
[2016-10-18] MEDS: BENZONATATE 100 MG CAPSULE. PO SCH ×2 (12:39→21:15)
--- NOTE | 2016-10-18 14:27 | PDOC ---
PULMONARY PROGRESS NOTES Subjective PT FEELS BETTER READY FOR POSSIBLE D/C IN AM Vitals Vital Signs Date Time Temp Pulse Resp B/P (MAP) Pulse Ox O2 Delivery O2 Flow Rate FiO2 10/18/16 11:57 Nasal Cannula 4.0 10/18/16 11:23 98.3 87 19 129/68 (88) 95 98.3 ROS: No Nausea, No Chest Pain, No Abdominal Pain, No Increase Cough Lungs: Clear Cardiovascular: S1, S2 Abdomen: Soft, Non-tender Neuro Exam: Alert Extremities: No Edema Skin: Warm Labs Laboratory Tests Test 10/17/16 14:15 White Blood Count 9.4 x10^3/uL (4.0-11.0) Red Blood Count 5.34 x10^6/uL (4.30-5.70) Hemoglobin 16.2 g/dL (13.0-17.5) Hematocrit 47.2 % (39.0-53.0) Mean Corpuscular Volume 88 fL (79-100) Mean Corpuscular Hemoglobin 30 pg (25-35) Mean Corpuscular Hemoglobin Concent 34 g/dL (31-37) Red Cell Distribution Width 13.7 % (11.5-14.5) Platelet Count 224 x10^3/uL (140-400) Neutrophils (%) (Auto) 58 % (31-73) Lymphocytes (%) (Auto) 19 % (24-48) Monocytes (%) (Auto) 9 % (0-9) Eosinophils (%) (Auto) 12 % (0-3) Basophils (%) (Auto) 2 % (0-3) Neutrophils # (Auto) 5.4 x10^3uL (1.8-7.7) Lymphocytes # (Auto) 1.8 x10^3/uL (1.0-4.8) Monocytes # (Auto) 0.8 x10^3/uL (0.0-1.1) Eosinophils # (Auto) 1.1 x10^3/uL (0.0-0.7) Basophils # (Auto) 0.2 x10^3/uL (0.0-0.2) Sodium Level 140 mmol/L (136-145) Potassium Level 3.8 mmol/L (3.5-5.1) Chloride Level 102 mmol/L (98-107) Carbon Dioxide Level 31 mmol/L (21-32) Anion Gap 7 (6-14) Blood Urea Nitrogen 9 mg/dL (8-26) Creatinine 0.8 mg/dL (0.7-1.3) Estimated GFR (Cockcroft-Gault) 94.2 Glucose Level 148 mg/dL (70-99) Calcium Level 9.6 mg/dL (8.5-10.1) Total Bilirubin 0.8 mg/dL (0.2-1.0) Direct Bilirubin 0.2 mg/dL (0.0-0.2) Aspartate Amino Transf (AST/SGOT) 18 U/L (15-37) Alanine Aminotransferase (ALT/SGPT) 26 U/L (16-63) Alkaline Phosphatase 109 U/L (46-116) Troponin I Quantitative < 0.017 ng/mL (0.000-0.055) SL-Qdc-Z-Type Natriuretic Peptide 92 pg/mL (0-449) Total Protein 8.0 g/dL (6.4-8.2) Albumin 4.0 g/dL (3.4-5.0) Lipase 116 U/L (73-393) Medications Active Scripts Medications Dose Route/Sig Max Daily Dose Days Date Category Proair Hfa Inhaler (Albuterol Sulfate) 8.5 Gm Hfa.aer.ad 1 Puff INH PRN Q6HRS PRN 10/17/16 Reported Prilosec Otc (Omeprazole Magnesium) 20 Mg Tablet.dr 1 Tab PO DAILY 10/17/16 Reported Incruse Ellipta (Umeclidinium R[place]el) 62.5 Mcg Blst.w.dev 62.5 Mcg IH DAILY 10/17/16 Reported Glimepiride 1 Mg Tablet 1 Tab PO DAILY 10/17/16 Reported Hydrocodone-Apap 5-325 (Hydrocodone Bit/Acetaminophen) 1 Each Tablet 1 Tab PO PRN Q6HRS PRN 10/17/16 Reported Simvastatin 20 Mg Tablet 20 Mg PO 08/17/13 Reported Cyclobenzaprine Hcl 10 Mg Tablet 10 Mg PO 08/17/13 Reported Carvedilol 25 Mg Tablet 25 Mg PO BID 08/17/13 Reported Impression . A/C RESP FAILURE AECOPD FAILED OUT PT TREATMENT PT SEEN TWICE IN OFFICE ACUTE BRONCHITIS HTN CAD TOBACCO DEPENDENCE IN REMISSION Plan . PT WANTS TO GO HOME IN AM IF POSSIBLE OK BY ME IF HE CONTINUE TO IMPROVE 02 NEBS IV STEROIDS ANTIBX JER SPIVEY MD Oct 18, 2016 14:27
[2016-10-18 15:21] VITALS: BP 139/69
[2016-10-18 19:25] VITALS: BP 163/67
[2016-10-18] MEDS: SIMVASTATIN 20 MG TABLET PO SCH (21:15)
[2016-10-18] MEDS: HYDROcodone/APAP 5/325MG 1 TAB TABLET PO PRN (21:31)
[2016-10-18 23:58] VITALS: BP 156/89
[2016-10-19 03:46] VITALS: BP 130/67
[2016-10-19] MEDS: PANTOPRAZOLE 40 MG TABLET.DR. PO SCH (06:33)
[2016-10-19 07:00] VITALS: BP 132/72
[2016-10-19] MEDS: IPRATRPIUM/ALBUTEROL 0.5/2.5MG 3 ML NEBU. NEB SCH ×2 (07:08→12:06)
[2016-10-19] MEDS: guaiFENesin DM 200MG/20MG 10 ML SYRUP PO SCH ×2 (07:49→12:53)
[2016-10-19] MEDS: BENZONATATE 100 MG CAPSULE. PO SCH ×2 (07:49→12:53)
[2016-10-19] MEDS: GLIMEPIRIDE 2 MG TABLET. PO SCH (07:50)
[2016-10-19] MEDS: HYDROcodone/APAP 5/325MG 1 TAB TABLET PO PRN (07:50)
[2016-10-19] MEDS: CARVEDILOL 12.5 MG TABLET. PO SCH (07:51)
[2016-10-19] MEDS: methylPREDNISolone SOD SUCC PF 125 MG/2 ML VIAL. IV SCH (07:52)
[2016-10-19 11:00] VITALS: BP 125/71
[2016-10-19] MEDS ORDERED: PRED-220 PO (11:59)
[2016-10-19] MEDS ORDERED: BENZ100C15 PO (11:59)
[2016-10-19] MEDS ORDERED: predniSONE 10 MG TABLET PO ONE (12:00)
--- NOTE | 2016-10-19 19:33 | PDOC3 ---
Discharge Summary* Date of Admission: Oct 17, 2016 Date of Discharge: Oct 19, 2016 Admitting Diagnosis COPD exacerbation Problems: Final Diagnosis COPD exacerbation Brief Hospital Course Mr. Pulido is a 76 year-old male presenting to the emergency Department shortness of breath. He has a history of COPD and reports worsening COPD over the past few days. His triggers are changes in weather and humidity. Location lungs. Mildly improved with medications at home. Today he reports his symptoms just worsened and he needed to come into the hospital. It is worse with exertion. Nonradiating. He denies any pain. Review of systems was negative for chest pain abdominal pain nausea vomiting fevers chills cough. All other review of systems is negative unless otherwise noted in history of present illness. ED course: 76-year-old gentleman presenting to the emergency department today with worsening shortness of breath. Patient is at baseline at home on 4 L nasal cannula. The patient was continued on 4 L here and saturating mid 90s. Pertinent physical examination showed diffuse wheezing in the lungs bilaterally with prolonged respiratory phase and prolonged inspiratory phase. The patient was given nebulizer DuoNeb in the emergency department along with corticosteroids and then admitted for a COPD exacerbation. The patient was admitted for further evaluation workup and care. Pulmonary consult was requested and servic followed throughout hospitalization. the regimen started in the ER was contunued with good results and quick recovery. An EKG showed sinus rhythm with a regular rate, but frequent PVCs. Cardiology was consulted as well, but no significant cardiac event was found. By his own preference, patient ws discharged to home with steroid taper and F/U with Pulmonary. Physical Exam General: Alert, Oriented X3, Cooperative Heart: Regular rate, Normal S1, Normal S2 Lungs: dec BS, clear Abdomen: Normal bowel sounds, Soft, No tenderness Extremities: No clubbing, No cyanosis, No edema Skin: No rashes Disposition/Orders: D/C to Home CONDITION AT DISCHARGE: Improved Diet: Cardiac Scheduled Benzonatate (Benzonatate), 100 MG PO [id number] Carvedilol (Carvedilol), 25 MG PO BID, (Reported) Glimepiride (Glimepiride), 1 TAB PO DAILY, (Reported) Omeprazole Magnesium (Prilosec Otc), 1 TAB PO DAILY, (Reported) Prednisone (Prednisone), 10 MG PO UD Umeclidinium [place] (Incruse Ellipta), 62.5 MCG IH DAILY, (Reported) Scheduled PRN Albuterol Sulfate (Proair Hfa Inhaler), 1 PUFF INH PRN Q6HRS PRN for SHORTNESS OF BREATH, (Reported) Hydrocodone Bit/Acetaminophen (Hydrocodone-Apap 5-325 ), 1 TAB PO PRN Q6HRS PRN for PAIN, (Reported) Miscellaneous Medications Cyclobenzaprine Hcl (Cyclobenzaprine Hcl), 10 MG PO, (Reported) Simvastatin (Simvastatin), 20 MG PO, (Reported) Discontinued Medications Cholecalciferol (Vitamin D3) (Vitamin D-3), 1,000 UNIT PO, (Reported) Hollenberg-3 Fatty Acids (Fish Oil), 1,200 MG PO, (Reported) [advair], (Reported) [hydrocodone], (Reported) FOLLOW UP APPOINTMENT: Dr Kelly in 1 week PCP in 1-2 weeks PCP [facility] Time Spent Total time spent with patient [] minutes for coordination of care, counseling, and education. AMBIKA PHILLIPS MD Oct 19, 2016 19:33
== END 2016-10-19 14:10 | disposition home or self-care (01) | DRG 189 ==
LOC: ER 13:21 → 6 SOUTH 13:41 → OBSVTOIN 10-19 09:48
PROVIDERS: ADMIT Internal Medicine; ATTEND Internal Medicine
DX: J96.21 Acute and chronic respiratory failure with hypoxia (principal); J44.1 Chronic obstructive pulmonary disease with (acute) exacerbation; J44.0 Chronic obstructive pulmonary disease with (acute) lower respiratory infection; J20.9 Acute bronchitis, unspecified; I49.3 Ventricular premature depolarization; I25.10 Atherosclerotic heart disease of native coronary artery without angina pectoris; I10 Essential (primary) hypertension; F17.201 Nicotine dependence, unspecified, in remission; K57.90 Diverticulosis of intestine, part unspecified, without perforation or abscess without bleeding; M19.90 Unspecified osteoarthritis, unspecified site; Z88.0 Allergy status to penicillin; Z90.49 Acquired absence of other specified parts of digestive tract; Z90.89 Acquired absence of other organs; Z79.899 Other long term (current) drug therapy; Z95.5 Presence of coronary angioplasty implant and graft
CPT/HCPCS: 36415; 71010; 80048; 80076; 83690; 83880; 84484; 85027; 93005; 94250; 94640; 94760; G0378; G0379; J2270; J2405; J2930; J7512; J7620

== ENCOUNTER 2018-01-18 15:03 | Emergency (ER) | payer MEDICARE, OTHER ==
[~2018-01-18] VITALS: Ht 182.9 cm; Wt 87.1 kg
[~2018-01-18 15:03] MED LIST changes: +BENZ-8 PO; +GLIM1TAB2 PO; +HYDR-2758 PO; +OMEP20TA63 PO; +PRED-220 PO; +PROAIR HFA8.5 GM INH; +UMEC62.5 IH
[2018-01-18 15:30] LABS: BASO # 0.1 x10^3/uL (0.0-0.2); BASO % 1 % (0-3); EOS # 0.5 x10^3/uL (0.0-0.7); EOS % 6 % (0-3); HEMATOCRIT 47.5 % (39.0-53.0); HEMOGLOBIN 16.2 g/dL (13.0-17.5); LYMPH # 2.1 x10^3/uL (1.0-4.8); LYMPH % 24 % (24-48); MEAN CORPUSCULAR HEMOGLOBIN 29 pg (25-35); MEAN CORPUSCULAR HGB CONC 34 g/dL (31-37); MEAN CORPUSCULAR VOLUME 86 fL (79-100); MONO # 0.6 x10^3/uL (0.0-1.1); MONO % 7 % (0-9); NEUT # 5.5 x10^3uL (1.8-7.7); NEUT % 62 % (31-73); PLATELET COUNT 298 x10^3/uL (140-400); RED BLOOD COUNT 5.53 x10^6/uL (4.30-5.70); RED CELL DISTRIBUTION WIDTH 15.1 % (11.5-14.5); WHITE BLOOD COUNT 8.8 x10^3/uL (4.0-11.0)
--- NOTE | 2018-01-18 15:31 | PHYS DOC ---
Past Medical History Past Medical History: CAD, COPD, Diverticulosis, Hypertension Additional Past Medical Histor: Osteoarthritis Past Surgical History: Appendectomy, Tonsillectomy Additional Past Surgical Histo: cardiac stent, hip, neck fixation with hardware , back Additional Information: quit smoking 13 years Alcohol Use: None Drug Use: None Adult General Chief Complaint Chief Complaint: RAPID HEART RATE [facility] HPI Patient is a 77 year old [f__sex] who presents with [fast heart rate. He shouldn't was receiving his preoperative evaluation for a cataract surgery today when they noted that his heart rate was in the 150 range. He was sent to the emergency department for further evaluation. Patient denies any chest pain, palpitations, dyspnea on exertion, nor any difficulty breathing. Patient reports that he is able to ambulate like he always does without any changes. Patient denies any lower extremity swelling. Patient denies any recent travel. Patient had previous eye surgery approximately 2 months ago without any complications and he reports his heart rate at that point was in the 70s. Patient reports he has been fasting for his surgery.] Review of Systems Review of Systems Constitutional: Denies fever or chills [] Eyes: Denies change in visual acuity, redness, or eye pain [] HENT: Denies nasal congestion or sore throat [] Respiratory: Denies cough or shortness of breath [] Cardiovascular: No additional information not addressed in HPI [] GI: Denies abdominal pain, nausea, vomiting, bloody stools or diarrhea [] : Denies dysuria or hematuria [] Musculoskeletal: Denies back pain or joint pain [] Integument: Denies rash or skin lesions [] Neurologic: Denies headache, focal weakness or sensory changes [] Endocrine: Denies polyuria or polydipsia [] All other systems were reviewed and found to be within normal limits, except as documented in this note. Current Medications Current Medications Current Medications Medications (Trade) Dose Ordered Sig/Jackson Start Time Stop Time Status Last Admin Dose Admin Carvedilol (Coreg) 25 mg ONCE STAT 01/18/18 16:19 01/18/18 16:21 DC 01/18/18 16:30 25 MG Allergies Allergies Allergies Coded Allergies Type Severity Reaction Last Updated Verified Penicillins Allergy Unknown swelling 08/17/13 Yes Physical Exam Physical Exam Constitutional: Well developed, well nourished, no acute distress, non-toxic appearance. [] HENT: Normocephalic, atraumatic, bilateral external ears normal, oropharynx moist, no oral exudates, nose normal. [] Eyes: PERRLA, EOMI, conjunctiva normal, no discharge. [] Neck: Normal range of motion, no tenderness, supple, no stridor. [] Cardiovascular:Heart rate regular rhythm, no murmur [] Lungs & Thorax: Bilateral breath sounds clear to auscultation [] Abdomen: Bowel sounds normal, soft, no tenderness, no masses, no pulsatile masses. [] Skin: Warm, dry, no erythema, no rash. [] Back: No tenderness, no CVA tenderness. [] Extremities: No tenderness, no cyanosis, no clubbing, ROM intact, no edema. [] Neurologic: Alert and oriented X 3, normal motor function, normal sensory function, no focal deficits noted. [] Psychologic: Affect normal, judgement normal, mood normal. [] Current Patient Data Vital Signs Vital Signs Date Time Temp Pulse Resp B/P (MAP) Pulse Ox O2 Delivery O2 Flow Rate FiO2 01/18/18 16:55 134 20 170/107 (128) 93 Room Air 01/18/18 15:16 98.2 98.2 Lab Values Laboratory Tests Test 01/18/18 15:15 01/18/18 15:30 White Blood Count 8.8 x10^3/uL (4.0-11.0) Red Blood Count 5.53 x10^6/uL (4.30-5.70) Hemoglobin 16.2 g/dL (13.0-17.5) Hematocrit 47.5 % (39.0-53.0) Mean Corpuscular Volume 86 fL (79-100) Mean Corpuscular Hemoglobin 29 pg (25-35) Mean Corpuscular Hemoglobin Concent 34 g/dL (31-37) Red Cell Distribution Width 15.1 % (11.5-14.5) H Platelet Count 298 x10^3/uL (140-400) Neutrophils (%) (Auto) 62 % (31-73) Lymphocytes (%) (Auto) 24 % (24-48) Monocytes (%) (Auto) 7 % (0-9) Eosinophils (%) (Auto) 6 % (0-3) H Basophils (%) (Auto) 1 % (0-3) Neutrophils # (Auto) 5.5 x10^3uL (1.8-7.7) Lymphocytes # (Auto) 2.1 x10^3/uL (1.0-4.8) Monocytes # (Auto) 0.6 x10^3/uL (0.0-1.1) Eosinophils # (Auto) 0.5 x10^3/uL (0.0-0.7) Basophils # (Auto) 0.1 x10^3/uL (0.0-0.2) Prothrombin Time 13.1 SEC (11.7-14.0) Prothrombin Time INR 1.0 (0.8-1.1) Sodium Level 141 mmol/L (136-145) Potassium Level 3.7 mmol/L (3.5-5.1) Chloride Level 103 mmol/L (98-107) Carbon Dioxide Level 28 mmol/L (21-32) Anion Gap 10 (6-14) Blood Urea Nitrogen 7 mg/dL (8-26) L Creatinine 0.9 mg/dL (0.7-1.3) Estimated GFR (Cockcroft-Gault) 82.0 BUN/Creatinine Ratio 8 (6-20) Glucose Level 108 mg/dL (70-99) H Calcium Level 9.5 mg/dL (8.5-10.1) Total Bilirubin 0.7 mg/dL (0.2-1.0) Aspartate Amino Transferase (AST) 20 U/L (15-37) Alanine Aminotransferase (ALT) 37 U/L (16-63) Alkaline Phosphatase 108 U/L (46-116) Creatine Kinase 88 U/L (39-308) Troponin I Quantitative < 0.017 ng/mL (0.000-0.055) Total Protein 8.7 g/dL (6.4-8.2) H Albumin 4.1 g/dL (3.4-5.0) Albumin/Globulin Ratio 0.9 (1.0-1.7) L Thyroid Stimulating Hormone (TSH) 1.966 uIU/mL (0.358-3.74) POC Troponin I 0.01 ng/ml (<0.08) Laboratory Tests 01/18/18 15:15 Laboratory Tests 01/18/18 15:15 EKG EKG EKG shows a sinus rhythm with a rate of 96 left axis deviation, no ST elevations , when compared with EKG of October 17, 2016, patient had a few number of PVCs at that time compared to only one PVC during today's EKG.[] Radiology/Procedures Radiology/Procedures Chest x-ray did not show any acute features[] Course & Med Decision Making Course & Med Decision Making Pertinent Labs and Imaging studies reviewed. (See chart for details) [Cardiac enzymes were negative. TSH was normal] ED course patient initially presented with a heart rate within the normal limits. In going to inform him of his normal test results, his heart rate increased to the 120s to 130s. Patient reported that he did not take his carvedilol this morning due to having the eye surgery. Patient was administered his usual dose of carvedilol. During the course of observation over the next hour, his heart rate improved to the 80s at various times. Decision making: There is no evidence of atrial fibrillation or flutter. No evidence of supraventricular tachycardia. No evidence of acute coronary syndrome. Dragon Disclaimer Dragon Disclaimer This electronic medical record was generated, in whole or in part, using a voice recognition dictation system. Departure Departure Impression: Primary Impression: Tachycardia Disposition: 01 HOME, SELF-CARE Condition: GOOD Referrals: DIAN ANGLIN (PCP) Patient Instructions: Nonspecific Tachycardia Additional Instructions: Follow-up with your regular doctor in the next 2 days. Take her medication as prescribed. Return to the ER if any chest pain, difficulty breathing, or any other concerns. ITZEL GUTIERRES DO Jan 18, 2018 15:31
--- NOTE | 2018-01-18 15:32 | EKG ---
[facility] [address] [place] [id number] Test Date: 2018-01-18 Test Time: 15:12:05 Pat Name: MELISA JARRELL Department: Room: Gender: M Certified Medical Assistant: : [id number] Requested By: ITZEL GUTIERRES Order Number: [id number] Reading MD: Rey Franklin MD Measurements Intervals [place] Rate: 96 P: 49 AK: 176 QRS: -34 QRSD: 96 T: 61 QT: 350 QTc: 443 Interpretive Statements SINUS RHYTHM PVC Electronically Signed On 01-20-2018 13:43:47 CDT by Rey Franklin MD
[2018-01-18 15:49] LABS: CALCIUM 9.5 mg/dL (8.5-10.1); CREATININE 0.9 mg/dL (0.7-1.3); POTASSIUM 3.7 mmol/L (3.5-5.1)
--- NOTE | 2018-01-18 15:50 | RAD ---
EXAM: Chest, single view. HISTORY: Tachycardia. COMPARISON: None. FINDINGS: A frontal view of the chest is obtained. There is no infiltrate, pleural effusion or pneumothorax. The heart is normal in size. There is bilateral lower lobe predominant atelectasis. There is cervical spinal fusion instrumentation. IMPRESSION: No acute pulmonary finding. Electronically signed by: Bria Valerio MD (01/18/2018 3:47 PM) [facility]
[2018-01-18 15:55] LABS: ALBUMIN 4.1 g/dL (3.4-5.0); ALBUMIN/GLOBULIN RATIO 0.9 (1.0-1.7); TOTAL BILIRUBIN 0.7 mg/dL (0.2-1.0); TOTAL PROTEIN 8.7 g/dL (6.4-8.2)
[2018-01-18 16:11] LABS: PROTHROMBIN TIME PATIENT 13.1 SEC (11.7-14.0)
[2018-01-18] MEDS ORDERED: CARVEDILOL 12.5 MG TABLET. PO STA (16:19)
--- NOTE | 2018-01-18 16:22 | EKG ---
[facility] [address] [place] [address] Test Date: 2018-01-18 Test Time: 16:18:19 Pat Name: MELISA JARRELL Department: Room: Gender: M Clinical Science Consultant: : 1940 Requested By: ITZEL GUTIERRES Order Number: [id number] Reading MD: Rey Franklin MD Measurements Intervals [place] Rate: 126 P: 0 MS: 144 QRS: -47 QRSD: 94 T: 59 QT: 328 QTc: 475 Interpretive Statements SINUS TACHYCARDIA ABNORMAL LEFT AXIS DEVIATION Electronically Signed On 01-20-2018 13:44:00 CDT by Rey Franklin MD
[2018-01-18 17:43] VITALS: BP 145/94
== END 2018-01-18 17:50 | disposition home or self-care (01) ==
LOC: ER 15:03
DX: R00.0 Tachycardia, unspecified (principal); I10 Essential (primary) hypertension; J44.9 Chronic obstructive pulmonary disease, unspecified; I25.10 Atherosclerotic heart disease of native coronary artery without angina pectoris; Z87.891 Personal history of nicotine dependence; Z95.5 Presence of coronary angioplasty implant and graft; Z88.0 Allergy status to penicillin
CPT/HCPCS: 36415; 71045; 80053; 82550; 84443; 84484; 85025; 85610; 93005; 96361; 96374; 96375; 99285-25

== ENCOUNTER 2021-03-28 13:24 | Inpatient (IN) | payer MEDICARE ==
[~2021-03-28] VITALS: Ht 182.9 cm; Wt 95.6 kg
[~2021-03-28 13:24] MED LIST changes: +ALBU2.5V8 INH; +CYCL10TA19 PO; -CYCL10TA2 PO; -GLIM1TAB2 PO; +GLIM1TAB7 PO; -HYDR-2758 PO; +HYDR-2761 PO; -PROAIR HFA8.5 GM INH; +SIMV20TA18 PO; -SIMV20TA3 PO
--- NOTE | 2021-03-28 13:36 | PHYS DOC ---
Past Medical History Past Medical History: CAD, COPD, Diverticulosis, Hypertension Additional Past Medical Histor: Osteoarthritis Past Surgical History: Appendectomy, Tonsillectomy Additional Past Surgical Histo: cardiac stent, hip, neck fixation with hardware, back Smoking Status: Former Smoker Alcohol Use: None Drug Use: None General Adult HPI: HPI: 80-year-old male past medical history significant for COPD on 2 L nasal cannula, hypertension and CAD, presents to the ED from home, brought in by EMS with complains of right hip pain and low back pain after unwitnessed fall. They suspect patient fell last night due to unkept disheveled appearance-was last seen normal at 8:30pm yesterday. Patient states he sometimes walks with a walker. Per EMS history, family reported patient's mental status is at [facility]. Review of Systems: Review of Systems: Constitutional: Denies fever or chills. [] Eyes: Denies change in visual acuity. [] HENT: Denies nasal congestion or sore throat. [] Respiratory: Denies cough or shortness of breath. [] Cardiovascular: Denies chest pain or edema. [] GI: Denies abdominal pain, nausea, vomiting, bloody stools or diarrhea. [] : Denies saddle anesthesia or incontinence Musculoskeletal: Denies flank pain or increased joint warmth Integument: Denies rash or diaphoresis Neurologic: Denies headache, focal weakness or sensory changes. [] Endocrine: Denies polyuria or polydipsia. [] Lymphatic: Denies swollen glands. [] Psychiatric: Denies depression or anxiety. [] Heart Score: C/O Chest Pain: No Risk Factors: Risk Factors: DM, Current or recent (<one month) smoker, HTN, HLP, family history of CAD, obesity. Risk Scores: Score 0 - 3: 2.5% MACE over next 6 weeks - Discharge Home Score 4 - 6: 20.3% MACE over next 6 weeks - Admit for Clinical Observation Score 7 - 10: 72.7% MACE over next 6 weeks - Early Invasive Strategies Allergies: Allergies: Allergies Coded Allergies Type Severity Reaction Last Updated Verified Penicillins Allergy Unknown swelling 08/17/13 Yes Physical Exam: PE: Constitutional: Unkept disheveled appearance, no acute distress, non-toxic appearance. HENT: Normocephalic, atraumatic, dry mucous membranes Eyes: Pupils equal and reactive, EOMI, conjunctiva normal, no discharge. Neck: Normal range of motion, supple, no midline neck pain Cardiovascular: S1/2 present, irregular rhythm Lungs & Thorax: Speaking in full sentences, bilateral equal chest rise, no tachypnea or increased work of breathing Abdomen: soft, no tenderness, Skin: Warm, dry, no erythema, no rash. [] Back: No midline spinal step-off or tenderness, no CVA tenderness. [] Extremities: Swelling and deformity of her proximal right hip with tenderness, equal lower extremity pulses, no cyanosis, Neurologic: Alert and oriented X 3, sensation intact Psychologic: Calm mood, no agitation EKG: EK A. fib 116 bpm, left axis deviation, QTC 510, T wave inversions, ST elevations or ST depressions 1455 A. fib 120 bpm, left axis deviation, QTC 514, T wave inversions, ST elevations or ST depressions Radiology/Procedures: Radiology/Procedures: IMAGING REPORT Signed PATIENT: MELISA JARRELL ACCOUNT: [id number] : 1940 LOCATION: ER AGE: 80 SEX: M EXAM STATUS: REG ER ORD. PHYSICIAN: BINA FARAH DO REASON: right hip pain PROCEDURE: HIP RIGHT 2V WITH PELVIS XR BILATERAL HIP (WITH OR WITHOUT PELVIS) 2 VIEWS_RIGHT dated 03/28/2021 3:23 PM. History: Reason: right hip pain / Spl. Instructions: / History: Comparison: None. Findings: There is a comminuted intertrochanteric fracture of the proximal right femur with mild varus angulation. No other fracture or dislocation is seen. Postoperative changes are evident at the proximal left femur. Impression: 1. Right femur fracture. Electronically signed by: Yovana Drake Jr., MD (03/28/2021 3:31 PM) [facility] DICTATED and SIGNED BY: YOVANA DRAKE Jr, MD DATE: 03/28/21 [id number] 0 IMAGING REPORT Signed PATIENT: MELISA JARRELL ACCOUNT: [id number] : 1940 LOCATION: ER AGE: 80 SEX: M EXAM STATUS: REG ER ORD. PHYSICIAN: BINA FARAH DO REASON: right hip pain PROCEDURE: KNEE RIGHT 2V XR FEMUR_RIGHT, XR KNEE_RT 1-2 VIEWS Clinical Indication: Reason: right hip pain / Spl. Instructions: / History: Comparison: None. Findings: Femur: The proximal femur is not imaged. The distal femur is without fracture. There are arterial calcifications. No obvious soft tissue swelling. Mineralization is relatively normal. Knee: There is narrowing of all 3 compartments. There is meniscal chondrocalcinosis. No acute fracture of the knee is identified. The patella is in anatomic position. There is no joint effusion. No soft tissue swelling is identified. There is moderate arterial calcification. IMPRESSION: 1. The proximal femur is not imaged. 2. The distal femur and knee are without fracture. Electronically signed by: Manuel Meng MD (03/28/2021 3:25 PM) [facility] DICTATED and SIGNED BY: MANUEL MENG MD DATE: 03/28/21 [id number] IMAGING REPORT Signed PATIENT: MELISA JARRELL ACCOUNT: [id number] : 1940 LOCATION: ER AGE: 80 SEX: M EXAM STATUS: REG ER ORD. PHYSICIAN: BINA FARAH DO REASON: fall PROCEDURE: PORTABLE CHEST 1V XR CHEST 1V Clinical Indication: Reason: fall Comparison: AP chest January 18, 2018 Findings: The cardiomediastinal silhouette is normal. Pulmonary vasculature is upper limits of normal. There is mild bibasilar atelectasis or scarring.. There is no pneumothorax. No pleural effusion is appreciated. No acute bone abnormality. There is posterior fusion hardware of the lower cervical spine, incompletely imaged. IMPRESSION: 1. Mild bibasilar atelectasis or scarring. 2. Pulmonary vasculature is upper limits of normal, cannot exclude mild congestion. Electronically signed by: Manuel Meng MD (03/28/2021 3:29 PM) [facility] DICTATED and SIGNED BY: MANUEL MENG MD DATE: 03/28/21 [id number] IMAGING REPORT Signed PATIENT: MELISA JARRELL ACCOUNT: [id number] : 1940 LOCATION: ER AGE: 80 SEX: M EXAM STATUS: REG ER ORD. PHYSICIAN: BINA FARAH DO REASON: fall, right hip pain PROCEDURE: CT HEAD AND CERVICAL SPINE WO CT HEAD AND C-SPINE WO dated 03/28/2021 5:34 PM Indication:Reason: fall, right hip pain / Spl. Instructions: / History: Comparison: No comparison is available. Technique: Noncontrast images were performed. Sagittal and coronal reconstructions were obtained. One or more of the following individualized dose reduction techniques were utilized for this examination: 1. Automated exposure control 2. Adjustment of the mA and/or kV according to patient size 3. Use of iterative reconstruction technique Findings: CT head: There is no apparent intracranial hemorrhage or abnormal extra-axial fluid collection. There is patchy low attenuation in the cerebral white matter consistent with chronic small vessel ischemic injury. No other area of abnormal density is seen. The ventricles and basilar cisterns are normally positioned. Bone windows show no apparent fracture of the skull. There is some partial opacification of the left ethmoid air cells. There is also patchy opacity in the mastoid air cells. CT cervical spine: Alignment appears normal. There are fixation rods and screws posteriorly bridging C3-C7. There is no loss of vertebral body height or prevertebral soft tissue swelling. No fracture line is seen. There is apparently bony fusion across the C3-4 disc. Other disks are narrowed. No destructive process is seen. There has been posterior decompression through the mid cervical levels. Evaluation of the soft tissue components of the canal is limited without intrathecal contrast. IMPRESSION: No acute abnormality. Electronically signed by: Yovana Drake Jr., MD (03/28/2021 6:29 PM) [facility] DICTATED and SIGNED BY: YOVANA DRAEK Jr, MD DATE: 03/28/21 [id number] 0 IMAGING REPORT Signed PATIENT: MELISA JARRELL ACCOUNT: [id number] : 1940 LOCATION: ED HOLD AGE: 80 SEX: M EXAM STATUS: ADM IN ORD. PHYSICIAN: BINA FARAH DO REASON: low back pain, s/p fall with right femur fx PROCEDURE: CT CHEST ABD PELVIS W/CONTRAST INDICATION: Reason: low back pain, s/p fall with right femur fx / Spl. Instructions: IV omni 300 75 mls / History: . COMPARISON: August 2013 TECHNIQUE: Axial CT images obtained through the chest, abdomen and pelvis with contrast. Reformatted images processed of the thoracic and lumbar spine. One or more of the following individualized dose reduction techniques were utilized for this examination: 1. Automated exposure control; 2. Adjustment of the mA and/or kV according to patient size; 3. Use of iterative reconstruction technique. FINDINGS: There are some dependent airspace opacities at the right greater than left lower lung with bronchiectasis as well as debris within the bronchi. There are some regions of nodularity at the lower lungs bilaterally. There is also a nodular density within the lingula measuring up to approximately 8 mm. No evidence of pneumothorax. Atherosclerotic disease throughout the vasculature. Small hiatal hernia. Coronary artery calcific atherosclerosis. There are some enlarged lymph nodes in the mediastinum. Atherosclerotic disease throughout abdominal aorta. Urinary bladder is dilated. Comminuted acute fracture of the right proximal femur with displacement. There is adjacent blood in the soft tissues. Intramedullary roque left proximal femur. Fat-containing inguinal hernias. Liver is low density. Nonspecific but can be seen with fatty infiltration. No peripancreatic fluid collection. No perisplenic hematoma. No hydronephrosis. Colonic diverticulosis. Fatty atrophy of rectus sheath musculature. Osseous findings: Partial visualization of postoperative changes at the lower cervical spine with posterior fusion. Degenerative changes throughout the thoracic spine with osteophyte formation at the vertebral body endplates. There is also Schmorl's node formation at multiple levels. No evidence of dislocation at thoracic spine. Minimal wedging of the T8, T12 and T10 vertebral body. Degenerative changes throughout the lumbar spine. No evidence of dislocation. There are some patchy osseous demineralization within the thoracic and lumbar spine. Mildly displaced left 11th rib fracture but has a chronic appearance. IMPRESSION: * Comminuted and displaced right proximal femur fracture extending through the intertrochanteric region. There is adjacent blood within the soft tissues. * Dilated urinary bladder. Would correlate as to whether the patient is having symptoms of urinary retention. Could also be from the patient not urinating recently. * Opacities are seen at the bilateral lung bases. A portion of this is secondary to debris within dilated bronchi which can be a chronic finding with aspiration, atelectasis or infiltrate within the differential given these findings and would correlate with symptoms. Also given that some of these foci are nodular in nature and may be helpful to obtain a follow-up in a few months to ensure no growth to exclude a neoplastic nodule. * Degenerative changes throughout the thoracic and lumbar spine with disc protrusions and osteophyte formation as well as Schmorl's node formation at multiple levels. * Mild loss of height of the T8, T10 and T12 vertebral bodies. Patchy osseous demineralization throughout spine. Electronically signed by: Samantha Blanco MD (03/28/2021 6:38 PM) [id number] DICTATED and SIGNED BY: SAMANTHA BLANCO MD DATE: 03/28/21 [id number] 0 Course & Med Decision Making: Course & Med Decision Making Pertinent Labs and Imaging studies reviewed. (See chart for details) Concern for unwitnessed fall in the setting of tachycardia and intertrochanteric right femur fracture. Tachycardia could be related to right hip blood loss (no anemia on labs) versus dehydration seen on clinical exam. Orthopedic surgeon Dr. Kaur assessed patient in the emergency department. Rapid Covid negative. Will admit to medicine for further medical management. Patient stable time admission and agrees with this plan. I have spoken with the patient and/or caregivers. I have explained the patient's condition, diagnosis and treatment plan based on the information available to me at this time. I have answered the patient's and/or caregivers questions and answered any concerns. The patient and/or caregivers have as good an understanding of the patient's diagnosis, condition and treatment plan as can be expected at this point. The patient has been stabilized within the capability of the emergency department. The patient will be transported for further care and management or will be moved to an observation or inpatient service. I have communicated with the staff or medical practitioner taking over this patient's care. Norma Disclaimer: Norma Disclaimer: This electronic medical record was generated, in whole or in part, using a voice recognition dictation system. Departure Departure Impression: Primary Impression: Fall Additional Impressions: Fracture, intertrochanteric, right femur Tachycardia Dehydration Disposition: ADMITTED INPATIENT Admitting Physician: GERRI (Dr. Morillo) Condition: GUARDED Referrals: DIAN ANGLIN (PCP) BINA FARAH DO Mar 28, 2021 13:36
[2021-03-28] MEDS ORDERED: IV NORMAL SALINE 1000ML BAG 1,000 ML IV SCH (14:15)
[2021-03-28 14:58] LABS: BASO % 0 % (0-3); EOS % 0 % (0-3); HEMATOCRIT 47.6 % (39.0-53.0); HEMOGLOBIN 16.2 g/dL (13.0-17.5); LYMPH # 0.9 x10^3/uL (1.0-4.8); LYMPH % 4 % (24-48); MEAN CORPUSCULAR HEMOGLOBIN 30 pg (25-35); MEAN CORPUSCULAR HGB CONC 34 g/dL (31-37); MEAN CORPUSCULAR VOLUME 88 fL (79-100); MONO % 5 % (0-9); NEUT # 19.8 x10^3/uL (1.8-7.7); NEUT % 91 % (31-73); PLATELET COUNT 344 x10^3/uL (140-400); RED BLOOD COUNT 5.39 x10^6/uL (4.30-5.70); WHITE BLOOD COUNT 21.8 x10^3/uL (4.0-11.0)
[2021-03-28 15:07] LABS: CALCIUM 9.1 mg/dL (8.5-10.1); GFR 72.1; POTASSIUM 3.8 mmol/L (3.5-5.1)
[2021-03-28 15:11] LABS: PROTHROMBIN TIME PATIENT 13.9 SEC (11.7-14.0)
[2021-03-28 15:13] LABS: ALBUMIN 4.1 g/dL (3.4-5.0); ALBUMIN/GLOBULIN RATIO 0.9 (1.0-1.7); MAGNESIUM 1.7 mg/dL (1.8-2.4); TOTAL BILIRUBIN 1.3 mg/dL (0.2-1.0); TOTAL PROTEIN 8.7 g/dL (6.4-8.2)
--- NOTE | 2021-03-28 15:27 | RAD ---
XR FEMUR_RIGHT, XR KNEE_RT 1-2 VIEWS Clinical Indication: Reason: right hip pain / Spl. Instructions: / History: Comparison: None. Findings: Femur: The proximal femur is not imaged. The distal femur is without fracture. There are arterial calcificat ions. No obvious soft tissue swelling. Mineralization is relatively normal. Knee: There is narrowing of all 3 compartments. There is meniscal chondrocalcinosis. No acute fracture of t he knee is identified. The patella is in anatomic position. There is no joint effusion. No soft tissu e swelling is identified. There is moderate arterial calcification. IMPRESSION: 1. The proximal femur is not imaged. 2. The distal femur and knee are without fracture. Electronically signed by: Manuel Meng MD (03/28/2021 3:25 PM) [facility]
--- NOTE | 2021-03-28 15:31 | RAD ---
XR CHEST 1V Clinical Indication: Reason: fall Comparison: AP chest January 18, 2018 Findings: The cardiomediastinal silhouette is normal. Pulmonary vasculature is upper limits of normal. There is mild bibasilar atelectasis or scarring.. There is no pneumothorax. No pleural effusion is appreciate d. No acute bone abnormality. There is posterior fusion hardware of the lower cervical spine, incompl etely imaged. IMPRESSION: 1. Mild bibasilar atelectasis or scarring. 2. Pulmonary vasculature is upper limits of normal, cannot exclude mild congestion. Electronically signed by: Manuel Meng MD (03/28/2021 3:29 PM) [facility]
--- NOTE | 2021-03-28 15:34 | RAD ---
XR BILATERAL HIP (WITH OR WITHOUT PELVIS) 2 VIEWS_RIGHT dated 03/28/2021 3:23 PM. History: Reason: right hip pain / Spl. Instructions: / History: Comparison: None. Findings: There is a comminuted intertrochanteric fracture of the proximal right femur with mild varus angulati on. No other fracture or dislocation is seen. Postoperative changes are evident at the proximal left femur. Impression: 1. Right femur fracture. Electronically signed by: Jose Drake Jr., MD (03/28/2021 3:31 PM) [facility]
[2021-03-28 16:01] LABS: % BANDS 8 % (0-9); % LYMPHS 3 % (24-48); % MONOS 5 % (0-10); % SEGS 84 % (35-66); PLT ESTIMATE ADEQUATE (ADEQUATE)
[2021-03-28] MEDS ORDERED: CONTRAST GIVEN. MC PRN (16:15)
[2021-03-28] MEDS ORDERED: IOHEXOL 300 MG/ML 100ML VIAL. IV ONE (16:15)
[2021-03-28] MEDS ORDERED: HYDROmorphone 2 MG/ML INJ. IVP ONE ×2 (17:00)
--- NOTE | 2021-03-28 18:20 | EKG ---
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
--- NOTE | 2021-03-28 18:20 | EKG ---
[facility] [address] [place] [address] Test Date: 2021-03-28 Test Time: 13:44:00 Pat Name: MELISA JARRELL Department: Room: Gender: M Human Resources Office Assistant: : 1940 Requested By: BINA FARAH Order Number: [id number] Reading MD: Rey Franklin MD Measurements Intervals [place] Rate: 116 P: IA: QRS: -41 QRSD: 94 T: 42 QT: 362 QTc: 510 Interpretive Statements Atrial fibrillation with rapid ventricular response NON-SPECIFIC ST/T CHANGES PVC Electronically Signed On 03-29-2021 9:23:44 DEBONING TEAM LEADER by Rey Franklin MD
--- NOTE | 2021-03-28 18:31 | RAD ---
CT HEAD AND C-SPINE WO dated 03/28/2021 5:34 PM Indication:Reason: fall, right hip pain / Spl. Instructions: / History: Comparison: No comparison is available. Technique: Noncontrast images were performed. Sagittal and coronal reconstructions were obtained. One or more of the following individualized dose reduction techniques were utilized for this examinat ion: 1. Automated exposure control 2. Adjustment of the mA and/or kV according to patient size 3. Use of iterative reconstruction technique Findings: CT head: There is no apparent intracranial hemorrhage or abnormal extra-axial fluid collection. There is patchy low attenuation in the cerebral white matter consistent with chronic small vessel ischemic injury. No other area of abnormal density is seen. The ventricles and basilar cisterns are normally positioned. Bone windows show no apparent fracture of the skull. There is some partial opacification of the left ethmoid air cells. There is also patchy opacity in the mastoid air cells. CT cervical spine: Alignment appears normal. There are fixation rods and screws posteriorly bridging C3-C7. There is no loss of vertebral body height or prevertebral soft tissue swelling. No fracture li ne is seen. There is apparently bony fusion across the C3-4 disc. Other disks are narrowed. No destru ctive process is seen. There has been posterior decompression through the mid cervical levels. Evalua tion of the soft tissue components of the canal is limited without intrathecal contrast. IMPRESSION: No acute abnormality. Electronically signed by: Jose Drake Jr., MD (03/28/2021 6:29 PM) [facility]
--- NOTE | 2021-03-28 18:41 | RAD ---
INDICATION: Reason: low back pain, s/p fall with right femur fx / Spl. Instructions: IV omni 300 75 m ls / History: . COMPARISON: August 2013 TECHNIQUE: Axial CT images obtained through the chest, abdomen and pelvis with contrast. Reformatted images proc essed of the thoracic and lumbar spine. One or more of the following individualized dose reduction techniques were utilized for this examinat ion: 1. Automated exposure control; 2. Adjustment of the mA and/or kV according to patient size; 3 . Use of iterative reconstruction technique. FINDINGS: There are some dependent airspace opacities at the right greater than left lower lung with bronchiect asis as well as debris within the bronchi. There are some regions of nodularity at the lower lungs bi laterally. There is also a nodular density within the lingula measuring up to approximately 8 mm. No evidence of pneumothorax. Atherosclerotic disease throughout the vasculature. Small hiatal hernia. Coronary artery calcific atherosclerosis. There are some enlarged lymph nodes in the mediastinum. Atherosclerotic disease throughout abdominal aorta. Urinary bladder is dilated. Comminuted acute fracture of the right proximal femur with displacement. There is adjacent blood in t he soft tissues. Intramedullary roque left proximal femur. Fat-containing inguinal hernias. Liver is low density. Nonspecific but can be seen with fatty infiltration. No peripancreatic fluid co llection. No perisplenic hematoma. No hydronephrosis. Colonic diverticulosis. Fatty atrophy of rectus sheath musculature. Osseous findings: Partial visualization of postoperative changes at the lower cervical spine with posterior fusion. Degenerative changes throughout the thoracic spine with osteophyte formation at the vertebral body en dplates. There is also Schmorl's node formation at multiple levels. No evidence of dislocation at thoracic spine. Minimal wedging of the T8, T12 and T10 vertebral body. Degenerative changes throughout the lumbar spine. No evidence of dislocation. There are some patchy osseous demineralization within the thoracic and lumbar spine. Mildly displaced left 11th rib fracture but has a chronic appearance. IMPRESSION: * Comminuted and displaced right proximal femur fracture extending through the intertrochanteric reg ion. There is adjacent blood within the soft tissues. * Dilated urinary bladder. Would correlate as to whether the patient is having symptoms of urinary r etention. Could also be from the patient not urinating recently. * Opacities are seen at the bilateral lung bases. A portion of this is secondary to debris within di lated bronchi which can be a chronic finding with aspiration, atelectasis or infiltrate within the di fferential given these findings and would correlate with symptoms. Also given that some of these foci are nodular in nature and may be helpful to obtain a follow-up in a few months to ensure no growth t o exclude a neoplastic nodule. * Degenerative changes throughout the thoracic and lumbar spine with disc protrusions and osteophyte formation as well as Schmorl's node formation at multiple levels. * Mild loss of height of the T8, T10 and T12 vertebral bodies. Patchy osseous demineralization throu out spine. Electronically signed by: David Decker MD (03/28/2021 6:38 PM) [id number]
--- NOTE | 2021-03-28 18:41 | RAD ---
Dictation is with the CT chest, abdomen and pelvis accession. Electronically signed by: David Decker MD (03/28/2021 6:39 PM) [id number]
--- NOTE | 2021-03-28 18:41 | RAD ---
Dictation is with the CT chest, abdomen and pelvis accession. Electronically signed by: David Decker MD (03/28/2021 6:39 PM) [id number]
[2021-03-28] MEDS ORDERED: MAGNESIUM SULFATE 2GM 50 ML IV ONE (21:00)
[2021-03-28] MEDS ORDERED: MORPHINE SULFATE 2 MG/ML INJ. IVP PRN (21:00)
[2021-03-28] MEDS ORDERED: DEXTROSE 50% 25 GM / 50ML DISP.SYRIN. IV PRN (21:00)
--- NOTE | 2021-03-28 21:10 | PDOC1 ---
History and Physical Date of Admission Date of Admission DATE: 03/28/21 TIME: 20:54 Identification/Chief Complaint Chief Complaint right hip pain Source Source: Chart review, Patient History of Present Illness History of Present Illness MR. Head 80-year-old male admit f f [facility] after a fall. Family estimates that he fell last night about midnight. He had his left hip replaced about 15 years ago, and today presents wt acute right hip pain after this fall and he cannot ambulate. Walks with a cane or walker at baseline, still does his own finances, hasnt driven in a few years due to not having a car, family takes him on his errands from his senior high- rise pain control better in ER, and he was able to get some sleep. He has a past medical history significant for COPD on 2 L nasal cannula, hypertension and CAD, back pain/ Past Medical History Cardiovascular: CAD, HTN Pulmonary: Bronchitis, COPD, Other GI: Diverticulosis Past Surgical History Past Surgical History: Appendectomy, Tonsillectomy, Other Social History ALCOHOL: none Current Problem List Problem List Problems Medical Problems: (1) Dehydration Status: Acute (2) Fall Status: Acute (3) Fracture, intertrochanteric, right femur Status: Acute (4) Tachycardia Status: Acute Current Medications Current Medications Current Medications Sodium Chloride 1,000 ml @ 1,000 mls/hr Q1H IV Last administered on 03/28/21at 14:15; Start 03/28/21 at 14:15; Stop 03/28/21 at 15:14; Status DC Iohexol (Omnipaque 300 Mg/ml) 75 ml 1X ONCE IV Last administered on 03/28/21at 17:55; Start 03/28/21 at 16:15; Stop 03/28/21 at 16:16; Status DC Info (CONTRAST GIVEN -- Rx MONITORING) 1 each PRN DAILY PRN MC SEE COMMENTS; Start 03/28/21 at 16:15; Stop 03/30/21 at 16:14 Hydromorphone HCl (Dilaudid) 1 mg 1X ONCE IVP Last administered on 03/28/21at 17:09; Start 03/28/21 at 17:00; Stop 03/28/21 at 17:01; Status DC Hydromorphone HCl (Dilaudid) 1 mg 1X ONCE IVP ; Start 03/28/21 at 17:00; Stop 03/28/21 at 17:01; Status DC Lorazepam (Ativan Inj) 2 mg 1X ONCE IVP Last administered on 03/28/21at 17:51; Start 03/28/21 at 18:00; Stop 03/28/21 at 18:01; Status DC Active Scripts Active Prednisone 10 Mg Tablet 10 Mg PO UD take 4 tabs daily for 3 days, then decrease by 1 pill every 3 days until gone Benzonatate 100 Mg Capsule 100 Mg PO [id number] Reported Proair Hfa Inhaler (Albuterol Sulfate) 8.5 Gm Hfa.aer.ad 1 Puff INH PRN Q6HRS PRN Prilosec Otc (Omeprazole Magnesium) 20 Mg Tablet.dr 1 Tab PO DAILY Incruse Ellipta (Umeclidinium [place]) 62.5 Mcg Blst.w.dev 62.5 Mcg IH DAILY Glimepiride 1 Mg Tablet 1 Tab PO DAILY Hydrocodone-Apap 5-325 (Hydrocodone Bit/Acetaminophen) 1 Each Tablet 1 Tab PO PRN Q6HRS PRN Simvastatin 20 Mg Tablet 20 Mg PO Cyclobenzaprine Hcl 10 Mg Tablet 10 Mg PO Carvedilol 25 Mg Tablet 25 Mg PO BID Allergies Allergies: Coded Allergies: Penicillins (Verified Allergy, Intermediate, swelling, 03/28/21) ROS General: YES: Fatigue, Malaise PSYCHOLOGICAL ROS: No: Anxiety, Behavioral Disorder, Concentration difficultie, Decreased libido, Depression, Disorientation, Hallucinations, Hostility, Irritablity, Memory difficulties, Mood Swings, Obsessive thoughts, Physical abuse, Sexual abuse, Sleep disturbances, Suicidal ideation, Other Eyes: No Blurry vision, No Decreased vision, No Double vision, No Dry eyes, No Excessive tearing, No Eye Pain, No Itchy Eyes, No Loss of vision, No Photophobia, No Scotomata, No Uses contacts, No Uses glasses, No Other HEENT: No: Heacaches, Visual Changes, Hearing change, Nasal congestion, Nasal discharge, Oral lesions, Sinus pain, Sore Throat, Epistaxis, Sneezing, Snoring, Tinnitus, Vertigo, Vocal changes, Other Respiratory: No: Cough, Hemoptysis, Orthopnea, Pleuritic Pain, Shortness of breath, SOB with excertion, Sputum Changes, Stridor, Tachypnea, Wheezing, Other Cardiovascular: No Chest Pain, No Palpitations, No Orthopnea, No Paroxysmal Noc. Dyspnea, No Edema, No Lt Headedness, No Other Gastrointestinal: No Nausea, No Vomiting, No Abdominal Pain, No Diarrhea, No Constipation, No Melena, No Hematochezia, No Other Genitourinary: No Dysuria, No Frequency, No Incontinence, No Hematuria, No Retention, No Discharge, No Urgency, No Pain, No Flank Pain, No Other, No , No , No , No , No , No , No Musculoskeletal: Yes Gait Disturbance, Yes Joint Pain, Yes Joint Stiffness, Yes Muscular Weakness Neurological: Yes Gait Disturbance; No Behavorial Changes, No Bowel/Bladder ControlChng, No Confusion, No Dizziness, No Headaches, No Impaired Coord/balance, No Memory Loss, No Numbness/Tingling, No Seizures, No Speech Problems, No Tremors, No Visual Changes, No Weakness, No Other Skin: No Dry Skin, No Eczema, No Hair Changes, No Lumps, No Mole Changes, No Mottling, No Nail Changes, No Pruritus, No Rash, No Skin Lesion Changes, No Other, No Acne Physical Exam General: Alert, Oriented X3, mild distress HEENT: Atraumatic, PERRLA Heart: S1S2 Abdomen: Normal bowel sounds, Soft Extremities: No clubbing, No cyanosis, No edema Skin: No rashes, No significant lesion Neuro: Normal speech, Cranial nerves 3-12 NL Psych/Mental Status: Mood NL Vitals Vitals Vital Signs Date Time Temp Pulse Resp B/P (MAP) Pulse Ox O2 Delivery O2 Flow Rate FiO2 03/28/21 19:37 107 20 116/77 (90) 94 Nasal Cannula 2.0 03/28/21 13:25 98.7 98.7 Labs Labs Laboratory Tests Test 03/28/21 13:52 03/28/21 17:18 03/28/21 17:22 03/28/21 19:46 White Blood Count 21.8 x10^3/uL (4.0-11.0) Red Blood Count 5.39 x10^6/uL (4.30-5.70) Hemoglobin 16.2 g/dL (13.0-17.5) Hematocrit 47.6 % (39.0-53.0) Mean Corpuscular Volume 88 fL (79-100) Mean Corpuscular Hemoglobin 30 pg (25-35) Mean Corpuscular Hemoglobin Concent 34 g/dL (31-37) Red Cell Distribution Width 14.0 % (11.5-14.5) Platelet Count 344 x10^3/uL (140-400) Neutrophils (%) (Auto) 91 % (31-73) Lymphocytes (%) (Auto) 4 % (24-48) Monocytes (%) (Auto) 5 % (0-9) Eosinophils (%) (Auto) 0 % (0-3) Basophils (%) (Auto) 0 % (0-3) Neutrophils # (Auto) 19.8 x10^3/uL (1.8-7.7) Lymphocytes # (Auto) 0.9 x10^3/uL (1.0-4.8) Monocytes # (Auto) 1.0 x10^3/uL (0.0-1.1) Eosinophils # (Auto) 0.0 x10^3/uL (0.0-0.7) Basophils # (Auto) 0.0 x10^3/uL (0.0-0.2) Segmented Neutrophils % 84 % (35-66) Band Neutrophils % 8 % (0-9) Lymphocytes % 3 % (24-48) Monocytes % 5 % (0-10) Platelet Estimate Adequate (ADEQUATE) Prothrombin Time 13.9 SEC (11.7-14.0) Prothromb Time International Ratio 1.1 (0.8-1.1) Activated Partial Thromboplast Time 37 SEC (24-38) Sodium Level 137 mmol/L (136-145) Potassium Level 3.8 mmol/L (3.5-5.1) Chloride Level 96 mmol/L (98-107) Carbon Dioxide Level 28 mmol/L (21-32) Anion Gap 13 (6-14) Blood Urea Nitrogen 9 mg/dL (8-26) Creatinine 1.0 mg/dL (0.7-1.3) Estimated GFR (Cockcroft-Gault) 72.1 BUN/Creatinine Ratio 9 (6-20) Glucose Level 228 mg/dL (70-99) Calcium Level 9.1 mg/dL (8.5-10.1) Magnesium Level 1.7 mg/dL (1.8-2.4) Total Bilirubin 1.3 mg/dL (0.2-1.0) Aspartate Amino Transf (AST/SGOT) 22 U/L (15-37) Alanine Aminotransferase (ALT/SGPT) 28 U/L (16-63) Alkaline Phosphatase 143 U/L (46-116) Troponin I High Sensitivity 24 ng/L (4-75) 33 ng/L (4-75) 36 ng/L (4-75) BG-Aof-T-Type Natriuretic Peptide 1484 pg/mL (0-449) Total Protein 8.7 g/dL (6.4-8.2) Albumin 4.1 g/dL (3.4-5.0) Albumin/Globulin Ratio 0.9 (1.0-1.7) SARS-CoV-2 Antigen (Rapid) Negative (NEGATIVE) Laboratory Tests Test 03/28/21 13:52 03/28/21 17:18 03/28/21 17:22 03/28/21 19:46 White Blood Count 21.8 x10^3/uL (4.0-11.0) Red Blood Count 5.39 x10^6/uL (4.30-5.70) Hemoglobin 16.2 g/dL (13.0-17.5) Hematocrit 47.6 % (39.0-53.0) Mean Corpuscular Volume 88 fL (79-100) Mean Corpuscular Hemoglobin 30 pg (25-35) Mean Corpuscular Hemoglobin Concent 34 g/dL (31-37) Red Cell Distribution Width 14.0 % (11.5-14.5) Platelet Count 344 x10^3/uL (140-400) Neutrophils (%) (Auto) 91 % (31-73) Lymphocytes (%) (Auto) 4 % (24-48) Monocytes (%) (Auto) 5 % (0-9) Eosinophils (%) (Auto) 0 % (0-3) Basophils (%) (Auto) 0 % (0-3) Neutrophils # (Auto) 19.8 x10^3/uL (1.8-7.7) Lymphocytes # (Auto) 0.9 x10^3/uL (1.0-4.8) Monocytes # (Auto) 1.0 x10^3/uL (0.0-1.1) Eosinophils # (Auto) 0.0 x10^3/uL (0.0-0.7) Basophils # (Auto) 0.0 x10^3/uL (0.0-0.2) Segmented Neutrophils % 84 % (35-66) Band Neutrophils % 8 % (0-9) Lymphocytes % 3 % (24-48) Monocytes % 5 % (0-10) Platelet Estimate Adequate (ADEQUATE) Prothrombin Time 13.9 SEC (11.7-14.0) Prothromb Time International Ratio 1.1 (0.8-1.1) Activated Partial Thromboplast Time 37 SEC (24-38) Sodium Level 137 mmol/L (136-145) Potassium Level 3.8 mmol/L (3.5-5.1) Chloride Level 96 mmol/L (98-107) Carbon Dioxide Level 28 mmol/L (21-32) Anion Gap 13 (6-14) Blood Urea Nitrogen 9 mg/dL (8-26) Creatinine 1.0 mg/dL (0.7-1.3) Estimated GFR (Cockcroft-Gault) 72.1 BUN/Creatinine Ratio 9 (6-20) Glucose Level 228 mg/dL (70-99) Calcium Level 9.1 mg/dL (8.5-10.1) Magnesium Level 1.7 mg/dL (1.8-2.4) Total Bilirubin 1.3 mg/dL (0.2-1.0) Aspartate Amino Transf (AST/SGOT) 22 U/L (15-37) Alanine Aminotransferase (ALT/SGPT) 28 U/L (16-63) Alkaline Phosphatase 143 U/L (46-116) Troponin I High Sensitivity 24 ng/L (4-75) 33 ng/L (4-75) 36 ng/L (4-75) ZZ-Jxz-J-Type Natriuretic Peptide 1484 pg/mL (0-449) Total Protein 8.7 g/dL (6.4-8.2) Albumin 4.1 g/dL (3.4-5.0) Albumin/Globulin Ratio 0.9 (1.0-1.7) SARS-CoV-2 Antigen (Rapid) Negative (NEGATIVE) Images Images * Comminuted and displaced right proximal femur fracture extending through the intertrochanteric region. There is adjacent blood within the soft tissues. VTE Prophylaxis Ordered VTE Prophylaxis Devices: No VTE Pharmacological Prophylaxi: Yes Assessment/Plan Assessment/Plan RIght femur fracture acute pain, cannot ambulate admit, consutl Ortho, Dr. Saenz has seen, plan surg in AM COPD, chronic hypoxia, stable, has beenactive recently, hold lovenox until after surg. weakness, fall risk, will need PT and OT Dm2, sliding scale luekocytosis, poss from fracture, + SIRS, check urine, RN to straight cath Justifications for Admission Other Justification ARTUR GRECO MD Mar 28, 2021 21:10
--- NOTE | 2021-03-28 21:28 | PDOC2 ---
CONSULT Date of Consult Date of Consult DATE: 03/28/21 TIME: 21:24 Referring Physician Referring Physician: Saroj Morillo Identification/Chief Complaint Chief Complaint Right hip pain after a fall Source Source: Chart review, Patient History of Present Illness Reason for Visit: This 80-year-old man fell at about midnight, and came to the hospital today regarding hip pain. X-rays show a right hip fracture. He uses a cane frequently to ambulate and has a walker but doesn't use it very often. He lives alone and no longer drives and has someone who helps with his grocery shopping. I fixed his left hip fracture in 2005. He stopped smoking and drinking in 2005 after breaking his hip. I saw him in the emergency room today, soon after his arrival, I spoke to him and his ex- was in the room. Past Medical History Cardiovascular: CAD, HTN Pulmonary: Bronchitis, COPD, Other GI: Diverticulosis Past Surgical History Past Surgical History: Appendectomy, Tonsillectomy, Other Social History Quit ALCOHOL: none Current Problem List Problem List Problems Medical Problems: (1) Dehydration Status: Acute (2) Fall Status: Acute (3) Fracture, intertrochanteric, right femur Status: Acute (4) Tachycardia Status: Acute Current Medications Current Medications Current Medications Sodium Chloride 1,000 ml @ 1,000 mls/hr Q1H IV Last administered on 03/28/21at 14:15; Start 03/28/21 at 14:15; Stop 03/28/21 at 15:14; Status DC Iohexol (Omnipaque 300 Mg/ml) 75 ml 1X ONCE IV Last administered on 03/28/21at 17:55; Start 03/28/21 at 16:15; Stop 03/28/21 at 16:16; Status DC Info (CONTRAST GIVEN -- Rx MONITORING) 1 each PRN DAILY PRN MC SEE COMMENTS; Start 03/28/21 at 16:15; Stop 03/30/21 at 16:14 Hydromorphone HCl (Dilaudid) 1 mg 1X ONCE IVP Last administered on 03/28/21at 17:09; Start 03/28/21 at 17:00; Stop 03/28/21 at 17:01; Status DC Hydromorphone HCl (Dilaudid) 1 mg 1X ONCE IVP ; Start 03/28/21 at 17:00; Stop 03/28/21 at 17:01; Status DC Lorazepam (Ativan Inj) 2 mg 1X ONCE IVP Last administered on 03/28/21at 17:51; Start 03/28/21 at 18:00; Stop 03/28/21 at 18:01; Status DC Oxycodone/ Acetaminophen (Percocet 5/325) 1 tab PRN Q4HRS PRN PO PAIN; Start 03/28/21 at 21:00 Morphine Sulfate (Morphine Sulfate) 4 mg PRN Q2HR PRN IVP PAIN; Start 03/28/21 at 21:00 Insulin Human Lispro (HumaLOG) 0-7 UNITS TIDWMEALS SQ ; Start 03/29/21 at 08:00 Dextrose (Dextrose 50%-Water Syringe) 12.5 gm PRN Q15MIN PRN IV SEE COMMENTS; Start 03/28/21 at 21:00 Magnesium Sulfate 50 ml @ 25 mls/hr 1X ONCE IV ; Start 03/28/21 at 21:00; Stop 03/28/21 at 22:59 Active Scripts Active Prednisone 10 Mg Tablet 10 Mg PO UD take 4 tabs daily for 3 days, then decrease by 1 pill every 3 days until gone Benzonatate 100 Mg Capsule 100 Mg PO [id number] Reported Proair Hfa Inhaler (Albuterol Sulfate) 8.5 Gm Hfa.aer.ad 1 Puff INH PRN Q6HRS PRN Prilosec Otc (Omeprazole Magnesium) 20 Mg Tablet.dr 1 Tab PO DAILY Incruse Ellipta (Umeclidinium [place]) 62.5 Mcg Blst.w.dev 62.5 Mcg IH DAILY Glimepiride 1 Mg Tablet 1 Tab PO DAILY Hydrocodone-Apap 5-325 (Hydrocodone Bit/Acetaminophen) 1 Each Tablet 1 Tab PO PRN Q6HRS PRN Simvastatin 20 Mg Tablet 20 Mg PO Cyclobenzaprine Hcl 10 Mg Tablet 10 Mg PO Carvedilol 25 Mg Tablet 25 Mg PO BID Allergies Allergies: Coded Allergies: Penicillins (Verified Allergy, Intermediate, swelling, 03/29/21) TOLERATES CEFTRIAXONE ROS Review of System General: YES: Fatigue, Malaise PSYCHOLOGICAL ROS: No: Anxiety, Behavioral Disorder, Concentration difficultie, Decreased libido, Depression, Disorientation, Hallucinations, Hostility, Irritablity, Memory difficulties, Mood Swings, Obsessive thoughts, Physical abuse, Sexual abuse, Sleep disturbances, Suicidal ideation, Other Eyes: No Blurry vision, No Decreased vision, No Double vision, No Dry eyes, No Excessive tearing, No Eye Pain, No Itchy Eyes, No Loss of vision, No Photophobia, No Scotomata, No Uses contacts, No Uses glasses, No Other HEENT: No: Heacaches, Visual Changes, Hearing change, Nasal congestion, Nasal discharge, Oral lesions, Sinus pain, Sore Throat, Epistaxis, Sneezing, Snoring, Tinnitus, Vertigo, Vocal changes, Other Respiratory: No: Cough, Hemoptysis, Orthopnea, Pleuritic Pain, Shortness of breath, SOB with excertion, Sputum Changes, Stridor, Tachypnea, Wheezing, Other Cardiovascular: No Chest Pain, No Palpitations, No Orthopnea, No Paroxysmal Noc. Dyspnea, No Edema, No Lt Headedness, No Other Gastrointestinal: No Nausea, No Vomiting, No Abdominal Pain, No Diarrhea, No Constipation, No Melena, No Hematochezia, No Other Genitourinary: No Dysuria, No Frequency, No Incontinence, No Hematuria, No Retention, No Discharge, No Urgency, No Pain, No Flank Pain, No Other, No , No , No , No , No , No , No Musculoskeletal: Yes Gait Disturbance, Yes Joint Pain, Yes Joint Stiffness, Yes Muscular Weakness Neurological: Yes Gait Disturbance; No Behavorial Changes, No Bowel/Bladder ControlChng, No Confusion, No Dizziness, No Headaches, No Impaired Coord/balance, No Memory Loss, No Numbness/Tingling, No Seizures, No Speech Problems, No Tremors, No Visual Changes, No Weakness, No Other Skin: No Dry Skin, No Eczema, No Hair Changes, No Lumps, No Mole Changes, No Mottling, No Nail Changes, No Pruritus, No Rash, No Skin Lesion Changes, No Other, No Acne General: YES: Fatigue, Malaise; No: Chills, Night Sweats PSYCHOLOGICAL ROS: No: Hallucinations HEENT: No: Heacaches Hematological and Lymphatic: No: Bleeding Problems, Blood Clots Respiratory: YES: Cough; No: Hemoptysis Cardiovascular: No Chest Pain, No Orthopnea Gastrointestinal: No Nausea, No Vomiting, No Diarrhea, No Constipation Genitourinary: No Hematuria, No Pain Musculoskeletal: Yes Joint Pain Neurological: Yes Gait Disturbance; No Bowel/Bladder ControlChng, No Seizures Physical Exam General: Alert, Cooperative HEENT: Atraumatic Lungs: Normal air movement Heart: Regular rate Abdomen: Soft Extremities: No edema, Other (slight decrease to light touch sensation bilateral LEs, consider peripheral neuropathy nondiabetic. Also has faint pulses.) Skin: No significant lesion Neuro: Normal speech, Other (able to wiggle toes up and down on fractured LE but decreased motion) MUSCULOSKELETAL: Abnormal exam of left (There is tenderness of the left hip. There is pain with any attempted motion. The skin is intact without ecchymosis. The extremity is shortened and externally rotated. Light touch sensation is intact at the foot and toes. Capillary refill and pulses are intact without evidence of ischemia. Slight dorsiflexion and plantarflexion are possible without evidence of sciatic nerve injury.) Vitals VITALS Vital Signs Date Time Temp Pulse Resp B/P (MAP) Pulse Ox O2 Delivery O2 Flow Rate FiO2 03/28/21 19:37 107 20 116/77 (90) 94 Nasal Cannula 2.0 03/28/21 13:25 98.7 98.7 Labs Labs Laboratory Tests Test 03/28/21 13:52 03/28/21 17:18 03/28/21 17:22 03/28/21 19:46 White Blood Count 21.8 x10^3/uL (4.0-11.0) Red Blood Count 5.39 x10^6/uL (4.30-5.70) Hemoglobin 16.2 g/dL (13.0-17.5) Hematocrit 47.6 % (39.0-53.0) Mean Corpuscular Volume 88 fL (79-100) Mean Corpuscular Hemoglobin 30 pg (25-35) Mean Corpuscular Hemoglobin Concent 34 g/dL (31-37) Red Cell Distribution Width 14.0 % (11.5-14.5) Platelet Count 344 x10^3/uL (140-400) Neutrophils (%) (Auto) 91 % (31-73) Lymphocytes (%) (Auto) 4 % (24-48) Monocytes (%) (Auto) 5 % (0-9) Eosinophils (%) (Auto) 0 % (0-3) Basophils (%) (Auto) 0 % (0-3) Neutrophils # (Auto) 19.8 x10^3/uL (1.8-7.7) Lymphocytes # (Auto) 0.9 x10^3/uL (1.0-4.8) Monocytes # (Auto) 1.0 x10^3/uL (0.0-1.1) Eosinophils # (Auto) 0.0 x10^3/uL (0.0-0.7) Basophils # (Auto) 0.0 x10^3/uL (0.0-0.2) Segmented Neutrophils % 84 % (35-66) Band Neutrophils % 8 % (0-9) Lymphocytes % 3 % (24-48) Monocytes % 5 % (0-10) Platelet Estimate Adequate (ADEQUATE) Prothrombin Time 13.9 SEC (11.7-14.0) Prothromb Time International Ratio 1.1 (0.8-1.1) Activated Partial Thromboplast Time 37 SEC (24-38) Sodium Level 137 mmol/L (136-145) Potassium Level 3.8 mmol/L (3.5-5.1) Chloride Level 96 mmol/L (98-107) Carbon Dioxide Level 28 mmol/L (21-32) Anion Gap 13 (6-14) Blood Urea Nitrogen 9 mg/dL (8-26) Creatinine 1.0 mg/dL (0.7-1.3) Estimated GFR (Cockcroft-Gault) 72.1 BUN/Creatinine Ratio 9 (6-20) Glucose Level 228 mg/dL (70-99) Calcium Level 9.1 mg/dL (8.5-10.1) Magnesium Level 1.7 mg/dL (1.8-2.4) Total Bilirubin 1.3 mg/dL (0.2-1.0) Aspartate Amino Transf (AST/SGOT) 22 U/L (15-37) Alanine Aminotransferase (ALT/SGPT) 28 U/L (16-63) Alkaline Phosphatase 143 U/L (46-116) Troponin I High Sensitivity 24 ng/L (4-75) 33 ng/L (4-75) 36 ng/L (4-75) HU-Esl-Y-Type Natriuretic Peptide 1484 pg/mL (0-449) Total Protein 8.7 g/dL (6.4-8.2) Albumin 4.1 g/dL (3.4-5.0) Albumin/Globulin Ratio 0.9 (1.0-1.7) SARS-CoV-2 Antigen (Rapid) Negative (NEGATIVE) Laboratory Tests Test 03/28/21 13:52 03/28/21 17:18 03/28/21 17:22 03/28/21 19:46 White Blood Count 21.8 x10^3/uL (4.0-11.0) Red Blood Count 5.39 x10^6/uL (4.30-5.70) Hemoglobin 16.2 g/dL (13.0-17.5) Hematocrit 47.6 % (39.0-53.0) Mean Corpuscular Volume 88 fL (79-100) Mean Corpuscular Hemoglobin 30 pg (25-35) Mean Corpuscular Hemoglobin Concent 34 g/dL (31-37) Red Cell Distribution Width 14.0 % (11.5-14.5) Platelet Count 344 x10^3/uL (140-400) Neutrophils (%) (Auto) 91 % (31-73) Lymphocytes (%) (Auto) 4 % (24-48) Monocytes (%) (Auto) 5 % (0-9) Eosinophils (%) (Auto) 0 % (0-3) Basophils (%) (Auto) 0 % (0-3) Neutrophils # (Auto) 19.8 x10^3/uL (1.8-7.7) Lymphocytes # (Auto) 0.9 x10^3/uL (1.0-4.8) Monocytes # (Auto) 1.0 x10^3/uL (0.0-1.1) Eosinophils # (Auto) 0.0 x10^3/uL (0.0-0.7) Basophils # (Auto) 0.0 x10^3/uL (0.0-0.2) Segmented Neutrophils % 84 % (35-66) Band Neutrophils % 8 % (0-9) Lymphocytes % 3 % (24-48) Monocytes % 5 % (0-10) Platelet Estimate Adequate (ADEQUATE) Prothrombin Time 13.9 SEC (11.7-14.0) Prothromb Time International Ratio 1.1 (0.8-1.1) Activated Partial Thromboplast Time 37 SEC (24-38) Sodium Level 137 mmol/L (136-145) Potassium Level 3.8 mmol/L (3.5-5.1) Chloride Level 96 mmol/L (98-107) Carbon Dioxide Level 28 mmol/L (21-32) Anion Gap 13 (6-14) Blood Urea Nitrogen 9 mg/dL (8-26) Creatinine 1.0 mg/dL (0.7-1.3) Estimated GFR (Cockcroft-Gault) 72.1 BUN/Creatinine Ratio 9 (6-20) Glucose Level 228 mg/dL (70-99) Calcium Level 9.1 mg/dL (8.5-10.1) Magnesium Level 1.7 mg/dL (1.8-2.4) Total Bilirubin 1.3 mg/dL (0.2-1.0) Aspartate Amino Transf (AST/SGOT) 22 U/L (15-37) Alanine Aminotransferase (ALT/SGPT) 28 U/L (16-63) Alkaline Phosphatase 143 U/L (46-116) Troponin I High Sensitivity 24 ng/L (4-75) 33 ng/L (4-75) 36 ng/L (4-75) GR-Sqr-N-Type Natriuretic Peptide 1484 pg/mL (0-449) Total Protein 8.7 g/dL (6.4-8.2) Albumin 4.1 g/dL (3.4-5.0) Albumin/Globulin Ratio 0.9 (1.0-1.7) SARS-CoV-2 Antigen (Rapid) Negative (NEGATIVE) Images Images Report reviewed, and there is an intertrochanteric fracture of the right hip. PATIENT: MELISA JARRELL ACCOUNT: [id number] : 1940 LOCATION: ER AGE: 80 SEX: M EXAM STATUS: REG ER ORD. PHYSICIAN: BINA FARAH DO REASON: right hip pain PROCEDURE: HIP RIGHT 2V WITH PELVIS XR BILATERAL HIP (WITH OR WITHOUT PELVIS) 2 VIEWS_RIGHT dated 03/28/2021 3:23 PM. History: Reason: right hip pain / Spl. Instructions: / History: Comparison: None. Findings: There is a comminuted intertrochanteric fracture of the proximal right femur with mild varus angulation. No other fracture or dislocation is seen. Postoperative changes are evident at the proximal left femur. Impression: 1. Right femur fracture. Electronically signed by: Jose Drake Jr., MD (03/28/2021 3:31 PM) [facility] Assessment/Plan Assessment/Plan Plan surgery Monday at noon. Displaced intertrochanteric fracture of right femur, initial encounter for closed fracture S72.141A We discussed operative versus nonoperative management. I recommend surgery. The alternative to surgery is bedrest which is generally not well tolerated and has high risks of continued pain, bedsores, pneumonia, and blood clots. Surgery is likely safer than nonoperative treatment. Risks of intramedullary nailing would include malunion, nonunion or hardware failure requiring additional surgery, bleeding, blood clots, neurovascular injury, or other potential surgical or anesthetic complications. All of his questions about surgery were answered and he desires to proceed. MELISA CALLAHAN MD Mar 28, 2021 21:28
[2021-03-28 21:51] LABS: BILIRUBIN,URINE NEGATIVE (NEG); CLARITY,URINE CLEAR; COLOR,URINE YELLOW; NITRITE,URINE NEGATIVE (NEG); PROTEIN,URINE >=300 mg/dL (NEG-TRACE); UROBILINOGEN,URINE 0.2 mg/dL (0.2 mg/dL)
[2021-03-28 21:55] LABS: BACTERIA,URINE 0 /HPF (0-FEW)
[2021-03-28 21:56] LABS: AMPHETAMINE/METHAMPHETAMINE NEG (NEG); BARBITURATES NEG (NEG); BENZODIAZEPINES NEG (NEG); CANNABINOIDS NEG (NEG); COCAINE NEG (NEG); METHADONE NEG (NEG); OPIATES POS (NEG); PHENCYCLIDINE NEG (NEG); RBC,URINE OCC /HPF (0-2)
[2021-03-28 23:00] VITALS: BP 186/93
[2021-03-29] VITALS (10 sets, daily range): BP systolic 102–172; BP diastolic 44–95
[2021-03-29] MEDS: cefTRIAXone IV Push 1 GM VIAL. IVP SCH ×2 (00:07→23:22)
[2021-03-29] MEDS: TAMSULOSIN 0.4 MG CAP.ER.24H. PO SCH ×2 (00:38→23:06)
[2021-03-29 03:35] LABS: BASO % 0 % (0-3); EOS % 0 % (0-3); HEMATOCRIT 42.9 % (39.0-53.0); HEMOGLOBIN 14.7 g/dL (13.0-17.5); LYMPH # 1.5 x10^3/uL (1.0-4.8); LYMPH % 7 % (24-48); MEAN CORPUSCULAR HEMOGLOBIN 30 pg (25-35); MEAN CORPUSCULAR HGB CONC 34 g/dL (31-37); MEAN CORPUSCULAR VOLUME 89 fL (79-100); MONO # 1.7 x10^3/uL (0.0-1.1); MONO % 9 % (0-9); NEUT # 16.6 x10^3/uL (1.8-7.7); NEUT % 84 % (31-73); PLATELET COUNT 277 x10^3/uL (140-400); RED BLOOD COUNT 4.84 x10^6/uL (4.30-5.70); RED CELL DISTRIBUTION WIDTH 13.9 % (11.5-14.5); WHITE BLOOD COUNT 19.9 x10^3/uL (4.0-11.0)
[2021-03-29 04:02] LABS: ALBUMIN 3.5 g/dL (3.4-5.0); ALBUMIN/GLOBULIN RATIO 0.9 (1.0-1.7); CALCIUM 8.6 mg/dL (8.5-10.1); CREATININE 0.8 mg/dL (0.7-1.3); GFR 93.3; POTASSIUM 3.5 mmol/L (3.5-5.1); TOTAL BILIRUBIN 1.1 mg/dL (0.2-1.0); TOTAL PROTEIN 7.4 g/dL (6.4-8.2)
[2021-03-29] MEDS ORDERED: CLINDAMYCIN 900MG PREMIX 50 ML IV PRN (06:00)
[2021-03-29] MEDS ORDERED: CLINDAMYCIN 600MG PREMIX 50 ML IV PRN ×2 (06:00→09:00)
[2021-03-29] MEDS: INSULIN LISPRO 300 UNITS/3 ML VIAL. SQ SCH ×3 (08:00→17:00)
--- NOTE | 2021-03-29 10:54 | NUR ---
SW following. Discussed with RN, pt from home alone in a senior high rise , 2L (does not use oxygen at home), NPO. Ortho following - pt having surgery today. Rapid COVID-19 negative. Therapy after surgery. SW will continue to follow.
[2021-03-29] MEDS ORDERED: CLINDAMYCIN PREMIX 900 MG/50 ML BAG IV ONE (11:40)
[2021-03-29] MEDS ORDERED: HYDROmorphone 2 MG/ML INJ. IVP PRN (12:00)
[2021-03-29] MEDS ORDERED: IV RINGERS,LACTATED 1000ML 1,000 ML IV SCH (12:00)
[2021-03-29] MEDS ORDERED: fentaNYL PF VIAL 100 MCG/2 ML VIAL IVP PRN ×2 (12:00→13:45)
[2021-03-29] MEDS ORDERED: PROCHLORPERAZINE 10 MG/2 ML VIAL. IVP PRN (12:00)
[2021-03-29] MEDS ORDERED: MORPHINE SULFATE 2 MG/ML INJ. IVP PRN ×2 (12:00→13:45)
[2021-03-29] MEDS ORDERED: PROPOFOL 10 MG/ML (20ML) VIAL. IV ONE ×2 (12:17→12:58)
[2021-03-29] MEDS ORDERED: ALBUTEROL SULFATE 2.5 MG/3 ML NEBU. NEB ONE (12:30)
[2021-03-29] MEDS ORDERED: TV=62ml MORPHINE 5 MG, KETOROLAC 30 MG, ROPIV, EPI INT ART ONE (12:30)
[2021-03-29] MEDS ORDERED: SUGAMMADEX SODIUM 200 MG/2 ML VIAL. IVP ONE (12:45)
[2021-03-29] MEDS ORDERED: fentaNYL PF VIAL 100 MCG/2 ML VIAL ONE ×2 (12:58→14:25)
[2021-03-29] MEDS ORDERED: LIDOCAINE 1% PF 5 ML VIAL. ONE (12:58)
[2021-03-29] MEDS ORDERED: VASOPRESSIN 20 UNIT/ML VIAL. ONE (13:10)
[2021-03-29] MEDS ORDERED: GLYCOPYRROLATE 1 MG/5 ML VIAL. ONE (13:13)
[2021-03-29] MEDS ORDERED: ONDANSETRON PF 4 MG/2 ML VIAL. ONE (13:19)
[2021-03-29] MEDS ORDERED: DEXAMETHASONE SOD PHOS 4 MG/ML VIAL ONE (13:19)
--- NOTE | 2021-03-29 13:21 | PDOC4 ---
Operative Note Operative Note Date of Procedure: March 29, 2021 Pre-Op Diagnosis: Displaced intertrochanteric fracture of right femur, initial encounter for closed fracture S72.141A Post-Op Diagnosis: same Procedure: right hip treatment of intertrochanteric femoral fracture with intramedullary implant, with interlocking screws, CPT 31466 Surgeon: Melisa Kaur MD Migration Agent: MARIA INES Dietz Anesthesia Type: General EBL: 100 mL Specimens Obtained: none Complications: None Implant Company: [employer] Implants: Gamma 3 Locking Nail 11 mm x 180 mm x 125; Gamma 3 system Lag Screw Titanium 10.5 mm x 100 mm; locking screw fully threaded 5 mm x 40 mm INDICATION FOR PROCEDURE: Mr. Pulido is 80 years old, and fell, sustaining a right hip fracture. X-rays show an unstable intertrochanteric hip fracture. The patient, the patient's ex-, and I discussed the risks, benefits and alternatives of treatment. The alternative for treatment is bedrest, which I generally do not recommend. I recommended intramedullary nailing, and I talked to him about the potential risks of this, including bleeding, infection, blood clots, malunion, nonunion or other potential surgical or anesthetic complications. All of the questions about surgery were answered, and he desired to proceed. A written consent was obtained. PROCEDURE IN DETAIL: The patient was identified in the preoperative holding area. The correct right hip was marked by me. The patient was taken to the operating room, where the patient was anesthetized by the Department of Anesthesia. Preoperative antibiotics were given intravenously. The HANA table was used and the well leg was placed in a padded lithotomy leg mohamud while the foot of the left leg was placed in a traction foot boot. A time-out procedure was performed. The image intensifier was used, and a preliminary reduction performed. All of the images were interpreted intraoperatively by me, and the image intensifier was used throughout the case. The right hip area was prepared in sterile fashion with ChloraPrep solution and a sterile barrier Ioban hip drape was used. An incision was made over the superior aspect of the greater trochanter. A 3.2 mm guide pin was placed at the tip of the greater trochanter, and advanced into the intramedullary canal. The one step conical reamer was used over the guidewire, and a reamer sleeve was used to protect the soft tissues. No intramedullary reaming was required.The chosen nail was attached to the targeting device with the Nail Holding Screw. The nail was placed down the canal on the targeting device and the position confirmed on the image intensifier. A second incision was now used over the lower part of the greater trochanter, to place a guide pin through the guide, near the center-center position of the femoral head, and measured. The tunnel for the lag screw was reamed using the cannulated Lag Screw Step Drill. The chosen lag screw was inserted using the guide and advanced until there was a low tip-apex distance, by using sequential checks on the image intensifier. Traction on the HANA table was released. A Set Screw was now placed to lock the Lag Screw. Finally, a 5.0 mm diameter Distal Cross Lock Screw was, using the targeting guide after predrilling, and measuring. Satisfactory fracture reduction and hardware position was obtained using image intensifier views in multiple planes. Copious irrigation was used and the fascia was closed with #2 Vicryl. I used a multidrug injection for hemostasis and pain relief which includes ropivacaine, epinephrine, and morphine. Bovie electrocautery was used for hemostasis. My microbiology lab assistant completed the closure with 2-0 Vicryl and vivian. A bulky sterile dressing was applied. The patient was gently transferred from the fracture table back to a hospital bed. There were no apparent complications. MELISA KAUR MD Mar 29, 2021 13:21
[2021-03-29] MEDS ORDERED: DEXTROSE 50% 25 GM / 50ML DISP.SYRIN. IV PRN (13:45)
[2021-03-29] MEDS ORDERED: oxyCODONE IR 5 MG TABLET PO PRN (13:45)
[2021-03-29] MEDS ORDERED: ONDANSETRON PF 4 MG/2 ML VIAL. IVP PRN (13:45)
[2021-03-29] MEDS ORDERED: POLYETHYLENE GLYCOL 3350 17 GM PACKET. PO PRN (13:45)
[2021-03-29] MEDS: fentaNYL PF VIAL 100 MCG/2 ML VIAL IVP PRN ×2 (14:32→15:00)
[2021-03-29] MEDS: IV 1/2 NORMAL SALINE 1,000 ML IV SCH (15:00)
[2021-03-29] MEDS: ALBUTEROL SULFATE 2.5 MG/3 ML NEBU. NEB SCH ×2 (15:35→18:26)
[2021-03-29] MEDS: BUDESONIDE 0.5 MG/2 ML NEBU. NEB SCH (18:26)
[2021-03-29] MEDS ORDERED: METOPROLOL IV PUSH 5 MG/5 ML VIAL. IVP ONE (18:45)
[2021-03-29] MEDS: CLINDAMYCIN 900MG PREMIX 50 ML IV SCH ×2 (19:27→23:33)
--- NOTE | 2021-03-29 20:24 | PDOC ---
[facility] PROGRESS NOTE Date of Service DOS: DATE: 03/29/21 TIME: 20:20 Chief Complaint Chief Complaint RIght femur fracture acute pain, cannot ambulate admit, consutl Ortho, surgery planned for 03/29 COPD, chronic hypoxia, stable, has beenactive recently, hold lovenox until after surg. weakness, fall risk, will need PT and OT Dm2, sliding scale luekocytosis, poss from fracture, + SIRS, check urine, RN to straight cath History of Present Illness History of Present Illness 03/29 Patient eval and examined at bedside. Surgery planned for today. Patient was pleasant prior to surgery when seen. Will follow up again after surgery. Vitals/I&O Vitals/I&O: Vital Signs Date Time Temp Pulse Resp B/P (MAP) Pulse Ox O2 Delivery O2 Flow Rate FiO2 03/29/21 19:36 114 117/64 03/29/21 18:26 95 Nasal Cannula 3.0 03/29/21 17:00 18 03/29/21 15:00 98.3 98.3 I & O 03/28/21 03/28/21 03/29/21 15:00 23:00 07:00 Intake Total 1000 ml 0 ml Output Total 2500 ml 250 ml Balance -1500 ml -250 ml Physical Exam General: Alert, Cooperative Heart: Regular rate Lungs: Clear Abdomen: Soft Extremities: No edema, Other (slight decrease to light touch sensation bilateral LEs, consider peripheral neuropathy nondiabetic. Also has faint pulses.) Skin: No significant lesion Labs Labs: Laboratory Tests Test 03/28/21 21:43 03/29/21 03:10 03/29/21 09:31 Urine Collection Type Unknown Urine Color Yellow Urine Clarity Clear Urine pH 6.0 (<5.0-8.0) Urine Specific [place] 1.025 (1.000-1.030) Urine Protein >=300 mg/dL (NEG-TRACE) Urine Glucose (UA) >=1000 mg/dL (NEG) Urine Ketones (Stick) 15 mg/dL (NEG) Urine Blood Moderate (NEG) Urine Nitrite Negative (NEG) Urine Bilirubin Negative (NEG) Urine Urobilinogen Dipstick 0.2 mg/dL (0.2 mg/dL) Urine Leukocyte Esterase Negative (NEG) Urine RBC Occ /HPF (0-2) Urine WBC 1-4 /HPF (0-4) Urine Bacteria 0 /HPF (0-FEW) Urine Mucus Slight /LPF Urine Opiates Screen Pos (NEG) Urine Methadone Screen Neg (NEG) Urine Barbiturates Neg (NEG) Urine Phencyclidine Screen Neg (NEG) Urine Amphetamine/Methamphetamine Neg (NEG) Urine Benzodiazepines Screen Neg (NEG) Urine Cocaine Screen Neg (NEG) Urine Cannabinoids Screen Neg (NEG) Urine Ethyl Alcohol Neg (NEG) White Blood Count 19.9 x10^3/uL (4.0-11.0) Red Blood Count 4.84 x10^6/uL (4.30-5.70) Hemoglobin 14.7 g/dL (13.0-17.5) Hematocrit 42.9 % (39.0-53.0) Mean Corpuscular Volume 89 fL (79-100) Mean Corpuscular Hemoglobin 30 pg (25-35) Mean Corpuscular Hemoglobin Concent 34 g/dL (31-37) Red Cell Distribution Width 13.9 % (11.5-14.5) Platelet Count 277 x10^3/uL (140-400) Neutrophils (%) (Auto) 84 % (31-73) Lymphocytes (%) (Auto) 7 % (24-48) Monocytes (%) (Auto) 9 % (0-9) Eosinophils (%) (Auto) 0 % (0-3) Basophils (%) (Auto) 0 % (0-3) Neutrophils # (Auto) 16.6 x10^3/uL (1.8-7.7) Lymphocytes # (Auto) 1.5 x10^3/uL (1.0-4.8) Monocytes # (Auto) 1.7 x10^3/uL (0.0-1.1) Eosinophils # (Auto) 0.0 x10^3/uL (0.0-0.7) Basophils # (Auto) 0.0 x10^3/uL (0.0-0.2) Sodium Level 140 mmol/L (136-145) Potassium Level 3.5 mmol/L (3.5-5.1) Chloride Level 102 mmol/L (98-107) Carbon Dioxide Level 27 mmol/L (21-32) Anion Gap 11 (6-14) Blood Urea Nitrogen 12 mg/dL (8-26) Creatinine 0.8 mg/dL (0.7-1.3) Estimated GFR (Cockcroft-Gault) 93.3 BUN/Creatinine Ratio 15 (6-20) Glucose Level 197 mg/dL (70-99) Calcium Level 8.6 mg/dL (8.5-10.1) Total Bilirubin 1.1 mg/dL (0.2-1.0) Aspartate Amino Transf (AST/SGOT) 23 U/L (15-37) Alanine Aminotransferase (ALT/SGPT) 22 U/L (16-63) Alkaline Phosphatase 116 U/L (46-116) Total Protein 7.4 g/dL (6.4-8.2) Albumin 3.5 g/dL (3.4-5.0) Albumin/Globulin Ratio 0.9 (1.0-1.7) 25-Hydroxy Vitamin D Total 11.9 ng/mL (30-100) Glucose (Fingerstick) 213 mg/dL (70-99) Assessment and Plan Assessmemt and Plan Problems Medical Problems: (1) Dehydration Status: Acute (2) Displaced intertrochanteric fracture of right femur, initial encounter for closed fracture Status: Acute (3) Fall Status: Acute (4) Fracture, intertrochanteric, right femur Status: Acute (5) Hypovitaminosis D Status: Chronic (6) Tachycardia Status: Acute Comment Review of Relevant I have reviewed the following items mary (where applicable) has been applied. Medications: Current Medications Medications (Trade) Dose Ordered Sig/Jackson Route PRN Reason Start Time Stop Time Status Last Admin Dose Admin Morphine Sulfate (Morphine Sulfate) 4 mg PRN Q2HR PRN IVP PAIN 03/28/21 21:00 03/29/21 03:10 Magnesium Sulfate 50 ml @ 25 mls/hr 1X ONCE IV 03/28/21 21:00 03/28/21 22:59 DC 03/29/21 00:35 Tamsulosin HCl (Flomax) 0.4 mg QHS PO 03/28/21 22:30 03/29/21 00:38 Ceftriaxone Sodium (Rocephin) 1 gm Q24H IVP 03/28/21 23:00 03/29/21 00:07 Fentanyl Citrate (Fentanyl 2ml Vial) 50 mcg PRN Q5MIN PRN IVP MODERATE PAIN 4-6 03/29/21 12:00 03/30/21 11:59 03/29/21 15:00 Morphine Sulfate 5 mg/Ketorolac Tromethamine 30 mg/Ropivacaine 60 ml/Epinephrine HCl 0.5 mg/ Miscellaneous 63 ml @ 63 mls/hr 1X PERIOP ONCE INT ART 03/29/21 12:30 03/29/21 13:29 DC 03/29/21 13:10 Budesonide (Pulmicort) 0.5 mg RTBID NEB 03/29/21 20:00 03/29/21 18:26 Albuterol Sulfate (Ventolin Neb Soln) 2.5 mg RTQID NEB 03/29/21 16:00 03/29/21 18:26 Clindamycin Phosphate 50 ml @ 100 mls/hr Q6H IV 03/29/21 18:00 03/30/21 06:29 03/29/21 19:27 Metoprolol Tartrate (Lopressor Vial) 5 mg 1X ONCE IVP 03/29/21 18:45 03/29/21 18:46 DC 03/29/21 19:36 Justifications for Admission Other Justification ERICKSON CASTILLO MD Mar 29, 2021 20:24
--- NOTE | 2021-03-30 01:11 | EKG ---
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
[2021-03-30 02:32] LABS: HEMOGLOBIN A1C 7.7 % (4.8-5.6)
[2021-03-30 02:42] VITALS: BP 154/77
[2021-03-30] MEDS ORDERED: MAGNESIUM HYDROXIDE 2,400 MG/30 ML ORAL.SUSP. PO PRN (06:00)
[2021-03-30] MEDS: IV 1/2 NORMAL SALINE 1,000 ML IV SCH (06:01)
[2021-03-30] MEDS: CLINDAMYCIN 900MG PREMIX 50 ML IV SCH (06:02)
[2021-03-30 06:35] LABS: HEMATOCRIT 37.5 % (39.0-53.0); HEMOGLOBIN 12.3 g/dL (13.0-17.5)
[2021-03-30 07:00] VITALS: BP 151/84
[2021-03-30] MEDS: BUDESONIDE 0.5 MG/2 ML NEBU. NEB SCH ×2 (08:28→20:24)
[2021-03-30] MEDS: ALBUTEROL SULFATE 2.5 MG/3 ML NEBU. NEB SCH ×4 (08:28→20:24)
[2021-03-30] MEDS: SENNOSIDES/DOCUSATE 8.6/50MG TABLET. PO SCH (08:44)
[2021-03-30] MEDS: CHOLECALCIFEROL (VITAMIN D3) 1,000 UNIT TABLET PO SCH (08:44)
[2021-03-30] MEDS: MULTIVITAMIN with MINERAL TABLET. PO SCH (08:44)
[2021-03-30] MEDS: INSULIN LISPRO 300 UNITS/3 ML VIAL. SQ SCH ×3 (08:47→17:31)
[2021-03-30 10:22] VITALS: BP 134/66
[2021-03-30] MEDS ORDERED: METOPROLOL IV PUSH 5 MG/5 ML VIAL. IVP ONE (11:00)
--- NOTE | 2021-03-30 11:04 | PDOC2 ---
CARDIAC CONSULT DATE OF CONSULT Date of Consult DATE: 03/30/21 TIME: 10:12 REASON FOR CONSULT Reason for Consult: Post op AFIB REFERRING PHYSICIAN Referring Physician: Rob SOURCE Source: Chart review, Patient HISTORY OF PRESENT ILLNESS HISTORY OF PRESENT ILLNESS This is a 80 yo male admitted for right hip pain. It was then confirmed that he had a right femoral fracture. He lives alone and was standing up at home when he felt dizzy, and had some nausea and remembered falling but no recollection after that. He was finally discovered by his exwife on the floor. Denied any chest pain or SOA. Denies any palpitations leading up to his fall. He is also diabetic and takes amaryl. He does have COPD and also has LISSA which he uses O2 at night. Consult is for AFIB post op. He had an ORIF to the right femur. No known hx of arrhythmia and has hx of CAD, HLP, HTN and DM2. 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 PAST MEDICAL HISTORY Cardiovascular: CAD, HTN, Hyperlipidemia Pulmonary: COPD CENTRAL NERVOUS SYSTEM: Other (No pertinent history) GI: Peptic Ulcer disease (remote) Heme/Onc: No pertinent hx Hepatobiliary: No pertinent hx Psych: No pertinent hx Musculoskeletal: Osteoarthritis Rheumatologic: No pertinent hx Infectious disease: No pertinent hx ENT: No pertinent hx Renal/: No pertinent hx Endocrine: Diabetes Dermatology: No pertinent hx PAST SURGICAL HISTORY Past Surgical History: Other (cervical fusion, lumbar laminectomy; left hip repair from fall, PCI 16 yrs ago) FAMILY HISTORY Family History: Hypertension SOCIAL HISTORY Smoke: Quit ALCOHOL: none Drugs: None Lives: Alone CURRENT MEDICATIONS CURRENT MEDICATIONS Current Medications Medications (Trade) Dose Ordered Sig/Jackson Route PRN Reason Start Time Stop Time Status Last Admin Dose Admin Fentanyl Citrate (Fentanyl 2ml Vial) 50 mcg PRN Q5MIN PRN IVP MODERATE PAIN 4-6 03/29/21 12:00 03/30/21 11:59 03/29/21 15:00 Morphine Sulfate 5 mg/Ketorolac Tromethamine 30 mg/Ropivacaine 60 ml/Epinephrine HCl 0.5 mg/ Miscellaneous 63 ml @ 63 mls/hr 1X PERIOP ONCE INT ART 03/29/21 12:30 03/29/21 13:29 DC 03/29/21 13:10 Budesonide (Pulmicort) 0.5 mg RTBID NEB 03/29/21 20:00 03/30/21 08:28 Albuterol Sulfate (Ventolin Neb Soln) 2.5 mg RTQID NEB 03/29/21 16:00 03/30/21 08:28 Multivitamins (Thera M Plus) 1 tab DAILY PO 03/30/21 09:00 03/30/21 08:44 Senna/Docusate Sodium (Senna Plus) 1 tab DAILY PO 03/30/21 09:00 03/30/21 08:44 Vitamin D (Vitamin D3) 5,000 unit DAILY PO 03/30/21 09:00 03/30/21 08:44 Sodium Chloride 1,000 ml @ 75 mls/hr [id number] IV 03/29/21 15:00 03/30/21 06:01 Clindamycin Phosphate 50 ml @ 100 mls/hr Q6H IV 03/29/21 18:00 03/30/21 06:29 DC 03/30/21 06:02 Metoprolol Tartrate (Lopressor Vial) 5 mg 1X ONCE IVP 03/29/21 18:45 03/29/21 18:46 DC 03/29/21 19:36 ALLERGIES ALLERGIES: Coded Allergies: Penicillins (Verified Allergy, Intermediate, swelling, 03/29/21) TOLERATES CEFTRIAXONE ROS Review of System 14 point ROS evaluated with pertinent positives noted per HPI PHYSICAL EXAM General: Alert, Oriented X3, Cooperative, No acute distress HEENT: Atraumatic, Mucous membr. moist/pink Lungs: Other (diminished bases) Heart: Other (AFIB ) Abdomen: Soft, No tenderness, Other (protuberant abdomen) Extremities: No cyanosis, Other (trace LE edema) Skin: No breakdown Neuro: Normal speech, Sensation intact Psych/Mental Status: Mental status NL, Mood NL MUSCULOSKELETAL: Osteoarthritic changes both hands VITALS/I&O VITALS/I&O: Vital Signs Date Time Temp Pulse Resp B/P (MAP) Pulse Ox O2 Delivery O2 Flow Rate FiO2 03/30/21 08:44 Nasal Cannula 3.0 03/30/21 07:00 98.7 113 18 151/84 (106) 93 98.7 I & O 03/29/21 03/29/21 03/30/21 15:00 23:00 07:00 Intake Total 1050 ml 0 ml Output Total 200 ml 350 ml Balance 850 ml -350 ml LABS Lab: Laboratory Tests Test 03/29/21 21:12 03/30/21 04:30 03/30/21 07:12 Glucose (Fingerstick) 255 mg/dL (70-99) H 168 mg/dL (70-99) H Hemoglobin 12.3 g/dL (13.0-17.5) L Hematocrit 37.5 % (39.0-53.0) L Mean Corpuscular Hemoglobin Concent 33 g/dL (31-37) Laboratory Tests 03/30/21 04:30 ASSESSMENT/PLAN ASSESSMENT/PLAN 1. Traumatic mechanical fall: right femoral fracture due to syncope 2. S/P right femoral ORIF 3. AFIB RVR: post op, remains HR 100s 4. Hx of COPD and LISSA: uses O2 at home 5. HTN: controlled 6. HLP 7. CAD: stent placed 16 yrs ago 8. DM2: per PCP 9. Syncope: Could not ascertain if this is due to hypoglycemia vs arrhythmia. Recommendations 1. Start on metoprolol 2. Eliquis to start for VTE and stroke prophylaxis when clear with ortho 3. Restart home BP regimen per BP trend 4. Secondary prevention measures. Will note H/H trend and if stable then will consider start on low dose ECASA 5. TSH and TTE 6. Follow up in office. 7. Will consider MCOT otherwise if remains in AFIB then outpt CVN would be considered. 8. SNU eval. GETACHEW SEVERINO APRN Mar 30, 2021 11:04
[2021-03-30] MEDS: oxyCODONE/APAP 5/325 1 TAB TABLET PO PRN ×2 (11:10→19:57)
--- NOTE | 2021-03-30 11:10 | NUR ---
SS following for discharge planning. SS reviewed pt chart and discussed with pt RN. Pt is from home alone and is currently requiring oxygen at two to three liters nasal canula. COVID19 negative. Pt has no home oxygen. Cardiology and Ortho following. Pt had surgery on 03/29/2021. PT/OT ordered. Pt on IV Rocephin. SS will continue to follow for discharge planning.
--- NOTE | 2021-03-30 12:41 | PDOC ---
PROGRESS NOTES Date of Service DATE: 03/30/21 TIME: 12:38 Subjective Subjective Doing well after hip nail. Just took some oral pain pills. Objective Vital Signs Vital Signs Date Time Temp Pulse Resp B/P (MAP) Pulse Ox O2 Delivery O2 Flow Rate FiO2 03/30/21 11:33 Nasal Cannula 3.0 03/30/21 11:11 119 134/66 03/30/21 11:10 20 94 03/30/21 10:22 97.2 97.2 Physical Exam Dressing is intact and dry. Calves are soft and nontender. Able to dorsiflex and plantarflex the toes. Sensation present baseline at the foot. No evidence of infection, DVT, nor neurovascular injury. Labs Laboratory Tests Test 03/28/21 13:52 03/28/21 17:18 03/28/21 17:22 03/28/21 19:46 White Blood Count 21.8 x10^3/uL (4.0-11.0) Red Blood Count 5.39 x10^6/uL (4.30-5.70) Hemoglobin 16.2 g/dL (13.0-17.5) Hematocrit 47.6 % (39.0-53.0) Mean Corpuscular Volume 88 fL (79-100) Mean Corpuscular Hemoglobin 30 pg (25-35) Mean Corpuscular Hemoglobin Concent 34 g/dL (31-37) Red Cell Distribution Width 14.0 % (11.5-14.5) Platelet Count 344 x10^3/uL (140-400) Neutrophils (%) (Auto) 91 % (31-73) Lymphocytes (%) (Auto) 4 % (24-48) Monocytes (%) (Auto) 5 % (0-9) Eosinophils (%) (Auto) 0 % (0-3) Basophils (%) (Auto) 0 % (0-3) Neutrophils # (Auto) 19.8 x10^3/uL (1.8-7.7) Lymphocytes # (Auto) 0.9 x10^3/uL (1.0-4.8) Monocytes # (Auto) 1.0 x10^3/uL (0.0-1.1) Eosinophils # (Auto) 0.0 x10^3/uL (0.0-0.7) Basophils # (Auto) 0.0 x10^3/uL (0.0-0.2) Segmented Neutrophils % 84 % (35-66) Band Neutrophils % 8 % (0-9) Lymphocytes % 3 % (24-48) Monocytes % 5 % (0-10) Platelet Estimate Adequate (ADEQUATE) Prothrombin Time 13.9 SEC (11.7-14.0) Prothromb Time International Ratio 1.1 (0.8-1.1) Activated Partial Thromboplast Time 37 SEC (24-38) Sodium Level 137 mmol/L (136-145) Potassium Level 3.8 mmol/L (3.5-5.1) Chloride Level 96 mmol/L (98-107) Carbon Dioxide Level 28 mmol/L (21-32) Anion Gap 13 (6-14) Blood Urea Nitrogen 9 mg/dL (8-26) Creatinine 1.0 mg/dL (0.7-1.3) Estimated GFR (Cockcroft-Gault) 72.1 BUN/Creatinine Ratio 9 (6-20) Glucose Level 228 mg/dL (70-99) Calcium Level 9.1 mg/dL (8.5-10.1) Magnesium Level 1.7 mg/dL (1.8-2.4) Total Bilirubin 1.3 mg/dL (0.2-1.0) Aspartate Amino Transf (AST/SGOT) 22 U/L (15-37) Alanine Aminotransferase (ALT/SGPT) 28 U/L (16-63) Alkaline Phosphatase 143 U/L (46-116) Troponin I High Sensitivity 24 ng/L (4-75) 33 ng/L (4-75) 36 ng/L (4-75) MX-Plk-E-Type Natriuretic Peptide 1484 pg/mL (0-449) Total Protein 8.7 g/dL (6.4-8.2) Albumin 4.1 g/dL (3.4-5.0) Albumin/Globulin Ratio 0.9 (1.0-1.7) SARS-CoV-2 RNA (BRIAN) Negative (Negative) SARS-CoV-2 Antigen (Rapid) Negative (NEGATIVE) Test 03/28/21 21:43 03/29/21 03:10 03/29/21 09:31 03/29/21 21:12 Urine Collection Type Unknown Urine Color Yellow Urine Clarity Clear Urine pH 6.0 (<5.0-8.0) Urine Specific [place] 1.025 (1.000-1.030) Urine Protein >=300 mg/dL (NEG-TRACE) Urine Glucose (UA) >=1000 mg/dL (NEG) Urine Ketones (Stick) 15 mg/dL (NEG) Urine Blood Moderate (NEG) Urine Nitrite Negative (NEG) Urine Bilirubin Negative (NEG) Urine Urobilinogen Dipstick 0.2 mg/dL (0.2 mg/dL) Urine Leukocyte Esterase Negative (NEG) Urine RBC Occ /HPF (0-2) Urine WBC 1-4 /HPF (0-4) Urine Bacteria 0 /HPF (0-FEW) Urine Mucus Slight /LPF Urine Opiates Screen Pos (NEG) Urine Methadone Screen Neg (NEG) Urine Barbiturates Neg (NEG) Urine Phencyclidine Screen Neg (NEG) Urine Amphetamine/Methamphetamine Neg (NEG) Urine Benzodiazepines Screen Neg (NEG) Urine Cocaine Screen Neg (NEG) Urine Cannabinoids Screen Neg (NEG) Urine Ethyl Alcohol Neg (NEG) White Blood Count 19.9 x10^3/uL (4.0-11.0) Red Blood Count 4.84 x10^6/uL (4.30-5.70) Hemoglobin 14.7 g/dL (13.0-17.5) Hematocrit 42.9 % (39.0-53.0) Mean Corpuscular Volume 89 fL (79-100) Mean Corpuscular Hemoglobin 30 pg (25-35) Mean Corpuscular Hemoglobin Concent 34 g/dL (31-37) Red Cell Distribution Width 13.9 % (11.5-14.5) Platelet Count 277 x10^3/uL (140-400) Neutrophils (%) (Auto) 84 % (31-73) Lymphocytes (%) (Auto) 7 % (24-48) Monocytes (%) (Auto) 9 % (0-9) Eosinophils (%) (Auto) 0 % (0-3) Basophils (%) (Auto) 0 % (0-3) Neutrophils # (Auto) 16.6 x10^3/uL (1.8-7.7) Lymphocytes # (Auto) 1.5 x10^3/uL (1.0-4.8) Monocytes # (Auto) 1.7 x10^3/uL (0.0-1.1) Eosinophils # (Auto) 0.0 x10^3/uL (0.0-0.7) Basophils # (Auto) 0.0 x10^3/uL (0.0-0.2) Sodium Level 140 mmol/L (136-145) Potassium Level 3.5 mmol/L (3.5-5.1) Chloride Level 102 mmol/L (98-107) Carbon Dioxide Level 27 mmol/L (21-32) Anion Gap 11 (6-14) Blood Urea Nitrogen 12 mg/dL (8-26) Creatinine 0.8 mg/dL (0.7-1.3) Estimated GFR (Cockcroft-Gault) 93.3 BUN/Creatinine Ratio 15 (6-20) Glucose Level 197 mg/dL (70-99) Hemoglobin A1c 7.7 % (4.8-5.6) Calcium Level 8.6 mg/dL (8.5-10.1) Total Bilirubin 1.1 mg/dL (0.2-1.0) Aspartate Amino Transf (AST/SGOT) 23 U/L (15-37) Alanine Aminotransferase (ALT/SGPT) 22 U/L (16-63) Alkaline Phosphatase 116 U/L (46-116) Total Protein 7.4 g/dL (6.4-8.2) Albumin 3.5 g/dL (3.4-5.0) Albumin/Globulin Ratio 0.9 (1.0-1.7) 25-Hydroxy Vitamin D Total 11.9 ng/mL (30-100) Glucose (Fingerstick) 213 mg/dL (70-99) 255 mg/dL (70-99) Test 03/30/21 04:30 03/30/21 07:12 03/30/21 10:48 Hemoglobin 12.3 g/dL (13.0-17.5) Hematocrit 37.5 % (39.0-53.0) Mean Corpuscular Hemoglobin Concent 33 g/dL (31-37) Thyroid Stimulating Hormone (TSH) 0.686 uIU/mL (0.358-3.74) Glucose (Fingerstick) 168 mg/dL (70-99) 210 mg/dL (70-99) Laboratory Tests Test 03/29/21 21:12 03/30/21 04:30 03/30/21 07:12 03/30/21 10:48 Glucose (Fingerstick) 255 mg/dL (70-99) 168 mg/dL (70-99) 210 mg/dL (70-99) Hemoglobin 12.3 g/dL (13.0-17.5) Hematocrit 37.5 % (39.0-53.0) Mean Corpuscular Hemoglobin Concent 33 g/dL (31-37) Thyroid Stimulating Hormone (TSH) 0.686 uIU/mL (0.358-3.74) Assessment Assessment POD# 1 hip nail Plan Plan of Care Weightbearing as tolerated. Discussed with cardiology, he can take Eliquis which will also help prevent DVT. It sounds like they are also going to continue the 81 mg aspirin which is fine. He will likely need half-way before he can return to home. Office follow-up in 10 to 14 days at [facility]. Justicifation of Admission Dx: Justifications for Admission: Justification of Admission Dx: Yes MELISA CALLAHAN MD Mar 30, 2021 12:41
[2021-03-30] MEDS: ASPIRIN ENTERIC COATED 81 MG TABLET.DR. PO SCH (14:02)
[2021-03-30] MEDS: APIXABAN 5 MG TABLET. PO SCH ×2 (14:02→19:56)
--- NOTE | 2021-03-30 14:39 | PDOC ---
[employer] PROGRESS NOTE Date of Service DOS: DATE: 03/30/21 TIME: 14:38 Chief Complaint Chief Complaint RIght femur fracture acute pain, cannot ambulate admit, consutl Ortho, surgery planned for 03/29 COPD, chronic hypoxia, stable, has beenactive recently, hold lovenox until after surg. weakness, fall risk, will need PT and OT Dm2, sliding scale luekocytosis, poss from fracture, + SIRS, check urine, RN to straight cath History of Present Illness History of Present Illness 03/22/2021 No acute events overnight. Patient tolerated surgery well without any major complications. Pain is moderately well controlled. Patient is waiting for p.o. pain medications. Pending PT OT evaluation, likely will need SNF placement. Ortho recommended weightbearing as tolerated. Okay for Eliquis with Ortho and cardiology. In addition to my E/M visit, advance care planning done with A total time of 20 minutes was spent from 11:00 to 1120 face to face in discussion regarding the patient's goals of care, CODE STATUS. 03/29 Patient eval and examined at bedside. Surgery planned for today. Patient was pleasant prior to surgery when seen. Will follow up again after surgery. Vitals/I&O Vitals/I&O: Vital Signs Date Time Temp Pulse Resp B/P (MAP) Pulse Ox O2 Delivery O2 Flow Rate FiO2 03/30/21 11:33 Nasal Cannula 3.0 03/30/21 11:11 119 134/66 03/30/21 11:10 20 94 03/30/21 10:22 97.2 97.2 I & O 03/29/21 03/29/21 03/30/21 15:00 23:00 07:00 Intake Total 1050 ml 0 ml Output Total 200 ml 350 ml Balance 850 ml -350 ml Physical Exam General: Alert, Oriented X3, Cooperative, No acute distress Heart: Other (AFIB ) Lungs: Clear Abdomen: Soft, No tenderness, Other (protuberant abdomen) Extremities: No cyanosis, Other (trace LE edema) Skin: No breakdown Labs Labs: Laboratory Tests Test 03/29/21 21:12 03/30/21 04:30 03/30/21 07:12 03/30/21 10:48 Glucose (Fingerstick) 255 mg/dL (70-99) 168 mg/dL (70-99) 210 mg/dL (70-99) Hemoglobin 12.3 g/dL (13.0-17.5) Hematocrit 37.5 % (39.0-53.0) Mean Corpuscular Hemoglobin Concent 33 g/dL (31-37) Thyroid Stimulating Hormone (TSH) 0.686 uIU/mL (0.358-3.74) Assessment and Plan Assessmemt and Plan Problems Medical Problems: (1) Dehydration Status: Acute (2) Displaced intertrochanteric fracture of right femur, initial encounter for closed fracture Status: Acute (3) Fall Status: Acute (4) Fracture, intertrochanteric, right femur Status: Acute (5) Hypovitaminosis D Status: Chronic (6) Tachycardia Status: Acute Comment Review of Relevant I have reviewed the following items mary (where applicable) has been applied. Medications: Current Medications Medications (Trade) Dose Ordered Sig/Jackson Route PRN Reason Start Time Stop Time Status Last Admin Dose Admin Budesonide (Pulmicort) 0.5 mg RTBID NEB 03/29/21 20:00 03/30/21 08:28 Albuterol Sulfate (Ventolin Neb Soln) 2.5 mg RTQID NEB 03/29/21 16:00 03/30/21 11:32 Multivitamins (Thera M Plus) 1 tab DAILY PO 03/30/21 09:00 03/30/21 08:44 Senna/Docusate Sodium (Senna Plus) 1 tab DAILY PO 03/30/21 09:00 03/30/21 08:44 Vitamin D (Vitamin D3) 5,000 unit DAILY PO 03/30/21 09:00 03/30/21 08:44 Sodium Chloride 1,000 ml @ 75 mls/hr [id number] IV 03/29/21 15:00 03/30/21 06:01 Clindamycin Phosphate 50 ml @ 100 mls/hr Q6H IV 03/29/21 18:00 03/30/21 06:29 DC 03/30/21 06:02 Metoprolol Tartrate (Lopressor Vial) 5 mg 1X ONCE IVP 03/29/21 18:45 03/29/21 18:46 DC 03/29/21 19:36 Metoprolol Tartrate (Lopressor Vial) 5 mg 1X ONCE IVP 03/30/21 11:00 03/30/21 11:01 DC 03/30/21 11:11 Aspirin (Ecotrin) 81 mg DAILYWBKFT PO 03/30/21 12:00 03/30/21 14:02 Apixaban (Eliquis) 5 mg BID PO 03/30/21 12:00 03/30/21 14:02 Justifications for Admission Other Justification MALI UMANZOR MD Mar 30, 2021 14:39
[2021-03-30 15:01] VITALS: BP 134/75
[2021-03-30] MEDS ORDERED: BISACODYL 10 MG SUPP.RECT. PR PRN (16:00)
--- NOTE | 2021-03-30 17:47 | CARD ---
MR#: [id number] Date of Study: 03/30/2021 Ordering Physician: GETACHEW SEVERINO, Referring Physician: GETACHEW SEVERINO Tech: Marialuisa Redding [facility] APPROVED REPORT EXAM: Two-dimensional and M-mode echocardiogram with Doppler and color Doppler. Other Information Quality : Technically LimitedTechnically LimitedHR: 104bpm Rhythm : Atrial FibrillationTechnically limited study due to body habitus and smoking, hip fx alesia ble to roll INDICATION Dyspnea Atrial Fibrillation RISK FACTORS Hypertension Obesity Hyperlipidemia 2D DIMENSIONS IVSd1.1 (0.7-1.1cm)LVDd5.0 (3.9-5.9cm) PWd1.0 (0.7-1.1cm)LVDs3.0 (2.5-4.0cm) FS (%) 39.9 %SV82.7 ml LVEF(%)70.3 (>50%) Aortic Valve AoV Peak Jerardo.110.1cm/Ana M Peak GR.4.9mmHg Tricuspid Valve TR P. Rojflfun464to/sTR Peak Gr.20mmHg LEFT VENTRICLE The left ventricle is normal size. There is normal left ventricular wall thickness. The left ventricu lar systolic function is normal and the ejection fraction is within normal range. Estimated ejection fraction 60%. There is grossly normal wall motion. Technically limited images. RIGHT VENTRICLE The right ventricle is normal size. There is normal right ventricular wall thickness. The right ventr icular systolic function is normal. ATRIA The left atrium size is normal. The right atrium size is normal. The interatrial septum is intact wit h no evidence for an atrial septal defect or patent foramen ovale as noted on 2-D or Doppler imaging. AORTIC VALVE Not well visualized. Doppler and Color Flow revealed no significant aortic regurgitation. There is no significant aortic valvular stenosis. MITRAL VALVE Not well visualized. There is no evidence of mitral valve prolapse. There is no mitral valve stenosis . Doppler and Color Flow revealed no mitral valve regurgitation noted. TRICUSPID VALVE Not well visualized. Doppler and Color Flow revealed trace tricuspid regurgitation. Estimated PAP 27- 32 mmHg. There is no tricuspid valve stenosis. PULMONIC VALVE Doppler and Color Flow revealed no pulmonic valvular regurgitation. GREAT VESSELS The aortic root is normal in size. Due to poor image quality, the IVC could not be assessed. PERICARDIAL EFFUSION There is no evidence of significant pericardial effusion. Critical Notification Critical Value: No <Conclusion> The left ventricular systolic function is normal and the ejection fraction is within normal range. E stimated ejection fraction 60%. There is grossly normal wall motion. Technically limited images. Doppler and Color Flow revealed trace tricuspid regurgitation. Estimated PAP 27-32 mmHg. Very limited study. Signed by : Rey Franklin, Electronically Approved : 03/30/2021 17:47:18
[2021-03-30 19:42] VITALS: BP 152/83
[2021-03-30] MEDS: LACTOBACILLUS RHAMNOSUS GG 1 CAPSULE. PO SCH (19:56)
[2021-03-30] MEDS: METOPROLOL TART IMMED RELEASE 25 MG TABLET. PO SCH (19:59)
[2021-03-30] MEDS: TAMSULOSIN 0.4 MG CAP.ER.24H. PO SCH (19:59)
[2021-03-30] MEDS: cefTRIAXone IV Push 1 GM VIAL. IVP SCH (22:07)
[2021-03-30 23:32] VITALS: BP 182/77
[2021-03-31] MEDS: oxyCODONE/APAP 5/325 1 TAB TABLET PO PRN ×2 (00:47→20:17)
[2021-03-31 03:12] VITALS: BP 147/86
[2021-03-31] MEDS: BUDESONIDE 0.5 MG/2 ML NEBU. NEB SCH ×2 (06:08→20:24)
[2021-03-31] MEDS: ALBUTEROL SULFATE 2.5 MG/3 ML NEBU. NEB SCH ×4 (06:08→20:24)
[2021-03-31 07:10] VITALS: BP 161/95
[2021-03-31] MEDS: ASPIRIN ENTERIC COATED 81 MG TABLET.DR. PO SCH (08:20)
[2021-03-31] MEDS: CHOLECALCIFEROL (VITAMIN D3) 1,000 UNIT TABLET PO SCH (08:21)
[2021-03-31] MEDS: LACTOBACILLUS RHAMNOSUS GG 1 CAPSULE. PO SCH ×2 (08:21→20:17)
[2021-03-31] MEDS: SENNOSIDES/DOCUSATE 8.6/50MG TABLET. PO SCH (08:21)
[2021-03-31] MEDS: APIXABAN 5 MG TABLET. PO SCH ×2 (08:21→20:17)
[2021-03-31] MEDS: MULTIVITAMIN with MINERAL TABLET. PO SCH (08:21)
[2021-03-31] MEDS: METOPROLOL TART IMMED RELEASE 25 MG TABLET. PO SCH (08:23)
[2021-03-31] MEDS: INSULIN LISPRO 300 UNITS/3 ML VIAL. SQ SCH ×3 (08:28→17:00)
[2021-03-31 10:09] VITALS: BP 140/69
--- NOTE | 2021-03-31 10:49 | PDOC ---
CARDIO Progress Notes Date and Time Date of Service 03/31/2021 Time of Evaluation 0950 Subjective Subjective: No Chest Pain, No shortness of breath, No Palpitations Vitals Vitals Vital Signs Date Time Temp Pulse Resp B/P (MAP) Pulse Ox O2 Delivery O2 Flow Rate FiO2 03/31/21 10:09 98.2 104 18 140/69 (92) 100 Nasal Cannula 2.0 98.2 Weight Weight [ ] Input and Output Intake and Output Intake and Output 03/31/21 07:00 Intake Total 240 ml Output Total 650 ml Balance -410 ml Intake Oral 240 ml Output Urine Total 650 ml Laboratory Labs Laboratory Tests Test 03/30/21 10:48 03/30/21 20:39 03/31/21 07:12 Glucose (Fingerstick) 210 mg/dL (70-99) 170 mg/dL (70-99) 154 mg/dL (70-99) Physical Exam HEENT: Neck Supple W Full Motion Chest: Symmetric LUNGS: Other (basilar crackles) Heart: irregularly irregular (AFIB) Abdomen: Soft N/T Extremities: No Edema, No Calf Tenderness Neurology: alert, oriented, follow commands Assessment Assessment 1. Traumatic mechanical fall: right femoral fracture due to syncope 2. S/P right femoral ORIF 3. AFIB RVR: post op, rate better. presently with intermittent PVCs. EF and WM nml 4. Hx of COPD and LISSA: uses O2 at home 5. HTN: controlled 6. HLP 7. CAD: stent placed 16 yrs ago 8. DM2: per PCP 9. Syncope: Could not ascertain if this is due to hypoglycemia vs arrhythmia. Recommendations 1. Change to toprol. BMP and Mg pending today. Replace K and Mg as warranted 2. Eliquis for stroke prevention and VTE prophylaxis 3. Secondary prevention measures. Continue low dose ECASA 4. Follow up in office. 5. Will consider MCOT otherwise if remains in AFIB then outpt CVN would be considered. 6. SNU eval. Justicifation of Admission Dx: Justifications for Admission: Justification of Admission Dx: Yes GETACHEW SEVERINO MANAGER POST Mar 31, 2021 10:49
--- NOTE | 2021-03-31 12:46 | NUR ---
SS following up with discharge planning. SS reviewed pt chart and discussed with pt RN. Pt is currently requiring oxygen at two liters nasal canula. COVID19 negative. Pt on IV Rocephin. Pt had hip surgery on 03/29/2021. PT/OT recommended senior living unit. Pt and family requested [facility], ; fax [phone], as first choice, [facility], ; fax [phone], as second choice, and [facility], ; fax [phone], as third choice. [facility] out of network with pt's insurance. Referral phoned and faxed to [facility]. SS will continue to follow for discharge planning. Addendum: 03/31/21 at 1349 by JEROME GARCIA Pt accepted and [facility] and insurance approval received. Per [facility] wheelchair transportation has been scheduled for tomorrow morning, 04/01/2021, at 1030am. [facility] requested less than 30 day order physically signed by physician. Dr. Morales notified. Pt, pt's family and pt's RN notified.
[2021-03-31] MEDS: METOPROLOL SUCC 24HR ER 50 MG TAB.ER.24H. PO SCH (13:07)
[2021-03-31 13:09] LABS: CALCIUM 8.4 mg/dL (8.5-10.1); CREATININE 0.9 mg/dL (0.7-1.3); GFR 81.4; MAGNESIUM 2.1 mg/dL (1.8-2.4); POTASSIUM 3.7 mmol/L (3.5-5.1)
[2021-03-31 13:14] LABS: HEMATOCRIT 36.4 % (39.0-53.0); HEMOGLOBIN 12.2 g/dL (13.0-17.5); RED BLOOD COUNT 4.04 x10^6/uL (4.30-5.70); RED CELL DISTRIBUTION WIDTH 13.8 % (11.5-14.5); WHITE BLOOD COUNT 20.8 x10^3/uL (4.0-11.0)
[2021-03-31 14:26] VITALS: BP 144/81
[2021-03-31] MEDS ORDERED: METO50TA4 PO (14:51)
[2021-03-31] MEDS ORDERED: HYDR-2761 PO (14:51)
[2021-03-31] MEDS ORDERED: ASPI-886 PO (14:51)
[2021-03-31] MEDS ORDERED: APIX5TAB PO (14:51)
--- NOTE | 2021-03-31 14:53 | SNU/HH DC ---
DISCHARGE ORDERS DISCHARGE INFORMATION: DISCHARGE DATE: Apr 01, 2021 FINAL DIAGNOSIS Problems Medical Problems: (1) Dehydration Status: Acute (2) Displaced intertrochanteric fracture of right femur, initial encounter for closed fracture Status: Acute (3) Fall Status: Acute (4) Fracture, intertrochanteric, right femur Status: Acute (5) Hypovitaminosis D Status: Chronic (6) Tachycardia Status: Acute CONDITION ON DISCHARGE: Stable CODE STATUS: Code Status: Full SHELTER: SNF STAY <30 DAYS: Yes POST DISCHARGE ORDERS: ACTIVITY ORDERS: Activity as tolerated WEIGHT BEARING STATUS: As tolerated DIET AFTER DISCHARGE: Cardiac CHECKS AFTER DISCHARGE: CHECKS AFTER DISCHARGE: Check blood press - daily, Check your Temp as needed FOLLOW-UP: PHYSICIAN FOLLOW-UP: PCP within 2 weeks of discharge ADDITIONAL FOLLOW-UP: Orthopedic surgery within 2 weeks of discharge LAB ORDERS FOR FOLLOW-UP: CBC, CMP ANTICOAGULATION F/U NEEDED: On Eliquis and aspirin TREATMENT/EQUIPMENT ORDERS: ADAPTIVE EQUIPMENT NEEDED: None Physical Therapy For: Evalulation/Treatment Occupational Therapy For: Evaluation/Treatment DISCHARGE MEDICATIONS: Home Meds Active Scripts Aspirin (ASPIRIN EC) 81 Mg Tablet.dr, 81 MG PO DAILYWBKFT for secondary heart prevention for 30 Days, #30 TAB.SR 2 Refills Prov:MALI UMANZOR MD 03/31/21 Metoprolol Succinate (Toprol XL) 50 Mg Tab.er.24h, 75 MG PO DAILY for heart rate for 30 Days, #45 TAB.SR 2 Refills Prov:MALI UMANZOR MD 03/31/21 Apixaban (ELIQUIS) 5 Mg Tablet, 5 MG PO BID for afib and dvt prophylaxis for 30 Days, #60 TAB Prov:MALI UMANZOR MD 03/31/21 Hydrocodone Bit/Acetaminophen (HYDROCODONE-APAP 5-325 ) 1 Each Tablet, 1 TAB PO PRN Q6HRS PRN for PAIN for 3 Days, #12 TAB 0 Refills Prov:MALI UMANZOR MD 03/31/21 Prednisone (PREDNISONE ) 10 Mg Tablet, 10 MG PO UD for PREDNISONE TAPER, #30 TAB 0 Refills take 4 tabs daily for 3 days, then decrease by 1 pill every 3 days until gone Prov:AMBIKA PHILLIPS MD 10/19/16 Benzonatate (BENZONATATE) 100 Mg Capsule, 100 MG PO [id number], #60 CAP Prov:AMBIKA PHILLIPS MD 10/19/16 Reported Medications Albuterol Sulfate (PROAIR HFA INHALER) 8.5 Gm Hfa.aer.ad, 1 PUFF INH PRN Q6HRS PRN for SHORTNESS OF BREATH, INHALER 0 Refills 10/17/16 Omeprazole Magnesium (PRILOSEC OTC) 20 Mg Tablet.dr, 1 TAB PO DAILY, #30 TAB 3 Refills 10/17/16 Umeclidinium [place] (Incruse Ellipta) 62.5 Mcg Blst.w.dev, 62.5 MCG IH DAILY 10/17/16 Glimepiride (GLIMEPIRIDE) 1 Mg Tablet, 1 TAB PO DAILY, #30 TAB 5 Refills 10/17/16 Simvastatin (SIMVASTATIN) 20 Mg Tablet, 20 MG PO 08/17/13 Cyclobenzaprine Hcl (CYCLOBENZAPRINE HCL) 10 Mg Tablet, 10 MG PO 08/17/13 Discontinued Reported Medications Carvedilol (CARVEDILOL) 25 Mg Tablet, 25 MG PO BID 08/17/13 MALI UMANZOR MD Mar 31, 2021 14:53
--- NOTE | 2021-03-31 14:56 | PDOC ---
[facility] [facility] PROGRESS NOTE Date of Service DOS: DATE: 03/31/21 TIME: 14:53 Chief Complaint Chief Complaint RIght femur fracture status post ORIF 03/29/2021 acute pain, cannot ambulate A. fib RVR in the postop period. History of COPD/OSAon home O2 History of hypertension History of dyslipidemia History of CAD History of diabetes mellitus History of Present Illness History of Present Illness 03/31/2021 No acute events overnight. Patient seen and examined bedside. Working well of physical therapy. Patient accepted at [facility] for tomorrow. Patient will need to continue with Eliquis, aspirin, and metoprolol. 03/30/2021 No acute events overnight. Patient tolerated surgery well without any major complications. Pain is moderately well controlled. Patient is waiting for p.o. pain medications. Pending PT OT evaluation, likely will need SNF placement. Ortho recommended weightbearing as tolerated. Okay for Eliquis with Ortho and cardiology. In addition to my E/M visit, advance care planning done with A total time of 20 minutes was spent from 11:00 to 1120 face to face in discussion regarding the patient's goals of care, CODE STATUS. 03/29 Patient eval and examined at bedside. Surgery planned for today. Patient was pleasant prior to surgery when seen. Will follow up again after surgery. Vitals/I&O Vitals/I&O: Vital Signs Date Time Temp Pulse Resp B/P (MAP) Pulse Ox O2 Delivery O2 Flow Rate FiO2 03/31/21 14:26 98.3 100 18 144/81 (102) 100 Nasal Cannula 2.0 98.3 l I & O 03/30/21 03/30/21 03/31/21 15:00 23:00 07:00 Intake Total 240 ml 0 ml 0 ml Output Total 150 ml 500 ml Balance 240 ml -150 ml -500 ml Physical Exam General: Alert, Oriented X3, Cooperative, No acute distress Heart: Other (AFIB ) Lungs: Clear Abdomen: Soft, No tenderness, Other (protuberant abdomen) Extremities: No cyanosis, Other (trace LE edema) Skin: No breakdown Labs Labs: Laboratory Tests Test 03/30/21 20:39 03/31/21 07:12 03/31/21 08:31 03/31/21 10:50 Glucose (Fingerstick) 170 mg/dL (70-99) 154 mg/dL (70-99) White Blood Count 20.8 x10^3/uL (4.0-11.0) Red Blood Count 4.04 x10^6/uL (4.30-5.70) Hemoglobin 12.2 g/dL (13.0-17.5) Hematocrit 36.4 % (39.0-53.0) Mean Corpuscular Volume 90 fL (79-100) Mean Corpuscular Hemoglobin 30 pg (25-35) Mean Corpuscular Hemoglobin Concent 33 g/dL (31-37) Red Cell Distribution Width 13.8 % (11.5-14.5) Platelet Count 296 x10^3/uL (140-400) Sodium Level 138 mmol/L (136-145) Potassium Level 3.7 mmol/L (3.5-5.1) Chloride Level 98 mmol/L (98-107) Carbon Dioxide Level 31 mmol/L (21-32) Anion Gap 9 (6-14) Blood Urea Nitrogen 16 mg/dL (8-26) Creatinine 0.9 mg/dL (0.7-1.3) Estimated GFR (Cockcroft-Gault) 81.4 Glucose Level 162 mg/dL (70-99) Calcium Level 8.4 mg/dL (8.5-10.1) Magnesium Level 2.1 mg/dL (1.8-2.4) Test 03/31/21 11:44 Glucose (Fingerstick) 169 mg/dL (70-99) Assessment and Plan Assessmemt and Plan Problems Medical Problems: (1) Dehydration Status: Acute (2) Displaced intertrochanteric fracture of right femur, initial encounter for closed fracture Status: Acute (3) Fall Status: Acute (4) Fracture, intertrochanteric, right femur Status: Acute (5) Hypovitaminosis D Status: Chronic (6) Tachycardia Status: Acute Comment Review of Relevant I have reviewed the following items mary (where applicable) has been applied. Medications: Current Medications Medications (Trade) Dose Ordered Sig/Jackson Route PRN Reason Start Time Stop Time Status Last Admin Dose Admin Metoprolol Tartrate (Lopressor) 25 mg BID PO 03/30/21 21:00 03/31/21 10:47 DC 03/31/21 08:23 Lactobacillus Rhamnosus (Culturelle) 1 cap BID PO 03/30/21 21:00 03/31/21 08:21 Metoprolol Succinate (Toprol Xl) 75 mg DAILY PO 03/31/21 10:45 03/31/21 13:07 Justifications for Admission Other Justification MALI UMANZOR MD Mar 31, 2021 14:55
[2021-03-31 19:39] VITALS: BP 166/93
[2021-03-31] MEDS: TAMSULOSIN 0.4 MG CAP.ER.24H. PO SCH (20:17)
[2021-03-31 23:22] VITALS: BP 136/61
[2021-04-01 02:54] VITALS: BP 145/95
[2021-04-01] MEDS: ALBUTEROL SULFATE 2.5 MG/3 ML NEBU. NEB SCH (06:31)
[2021-04-01] MEDS: BUDESONIDE 0.5 MG/2 ML NEBU. NEB SCH (06:32)
[2021-04-01 07:00] VITALS: BP 198/105
[2021-04-01] MEDS: INSULIN LISPRO 300 UNITS/3 ML VIAL. SQ SCH (08:00)
[2021-04-01] MEDS: SENNOSIDES/DOCUSATE 8.6/50MG TABLET. PO SCH (09:01)
[2021-04-01] MEDS: ASPIRIN ENTERIC COATED 81 MG TABLET.DR. PO SCH (09:01)
[2021-04-01] MEDS: MULTIVITAMIN with MINERAL TABLET. PO SCH (09:02)
[2021-04-01] MEDS: APIXABAN 5 MG TABLET. PO SCH (09:02)
[2021-04-01] MEDS: CHOLECALCIFEROL (VITAMIN D3) 1,000 UNIT TABLET PO SCH (09:02)
[2021-04-01] MEDS: LACTOBACILLUS RHAMNOSUS GG 1 CAPSULE. PO SCH (09:02)
[2021-04-01 09:04] VITALS: BP 198/105
[2021-04-01] MEDS: METOPROLOL SUCC 24HR ER 50 MG TAB.ER.24H. PO SCH (09:04)
[2021-04-01] MEDS: oxyCODONE/APAP 5/325 1 TAB TABLET PO PRN (10:50)
--- NOTE | 2021-04-01 11:15 | NUR ---
Discharge Note: MELISA JARRELL [address] [place] [address] Discharge instructions and discharge home medications reviewed with Other facility and a copy given. All questions have been answered and understanding verbalized. The following instructions and handouts were given: discharge instructions, med list, afib education, med education Discontinued lines and drains: Peripheral IV intact. Patient discharged to [facility] with [place] transportation via Wheelchair at 1115. Patient's mac catheter removed, Zio patch heart monitor placed on patient before discharge, R hip dressing also changed before discharge.
--- NOTE | 2021-04-01 11:18 | PDOC ---
PROGRESS NOTES Date of Service DATE: 04/01/21 TIME: 11:16 Subjective Subjective Doing well. Headed to [place] today for additional rehabilitation. Objective Vital Signs Vital Signs Date Time Temp Pulse Resp B/P (MAP) Pulse Ox O2 Delivery O2 Flow Rate FiO2 04/01/21 10:50 Nasal Cannula 2.0 04/01/21 09:04 99 198/105 04/01/21 07:00 95.0 96 95.0 04/01/21 02:54 18 Physical Exam Dressing intact and dry. Calves are soft and nontender. Comfortable in a wheelchair. Alert and talkative. Labs Laboratory Tests Test 03/30/21 20:39 03/31/21 07:12 03/31/21 08:31 03/31/21 10:50 Glucose (Fingerstick) 170 mg/dL (70-99) 154 mg/dL (70-99) White Blood Count 20.8 x10^3/uL (4.0-11.0) Red Blood Count 4.04 x10^6/uL (4.30-5.70) Hemoglobin 12.2 g/dL (13.0-17.5) Hematocrit 36.4 % (39.0-53.0) Mean Corpuscular Volume 90 fL (79-100) Mean Corpuscular Hemoglobin 30 pg (25-35) Mean Corpuscular Hemoglobin Concent 33 g/dL (31-37) Red Cell Distribution Width 13.8 % (11.5-14.5) Platelet Count 296 x10^3/uL (140-400) Sodium Level 138 mmol/L (136-145) Potassium Level 3.7 mmol/L (3.5-5.1) Chloride Level 98 mmol/L (98-107) Carbon Dioxide Level 31 mmol/L (21-32) Anion Gap 9 (6-14) Blood Urea Nitrogen 16 mg/dL (8-26) Creatinine 0.9 mg/dL (0.7-1.3) Estimated GFR (Cockcroft-Gault) 81.4 Glucose Level 162 mg/dL (70-99) Calcium Level 8.4 mg/dL (8.5-10.1) Magnesium Level 2.1 mg/dL (1.8-2.4) Test 03/31/21 11:44 03/31/21 16:46 03/31/21 20:19 04/01/21 09:05 Glucose (Fingerstick) 169 mg/dL (70-99) 166 mg/dL (70-99) 187 mg/dL (70-99) 191 mg/dL (70-99) Laboratory Tests Test 03/31/21 11:44 03/31/21 16:46 03/31/21 20:19 04/01/21 09:05 Glucose (Fingerstick) 169 mg/dL (70-99) 166 mg/dL (70-99) 187 mg/dL (70-99) 191 mg/dL (70-99) Assessment Assessment POD# 3 after intramedullary hip nail for intertrochanteric fracture. Also has low vitamin D level. On Eliquis and aspirin, for combination of factors. Plan Plan of Care Continue vitamin D 5000 units daily. Vitamin D level was 11 ng/mL (normal 30- 100 ng/mL). He may weight-bear as tolerated with a walker and progress ultimately to a cane when tolerated. Outpatient follow-up 10 to 14 days. He is on Eliquis from cardiology recommendations which will also help prevent blood clots, and is also recommended by cardiology to continue his 81 mg aspirin daily. Justicifation of Admission Dx: Justifications for Admission: Justification of Admission Dx: Yes MELISA CALLAHAN MD Apr 01, 2021 11:18
--- NOTE | 2021-04-01 11:58 | PDOC ---
CARDIO Progress Notes Date and Time Date of Service 04/01/2021 Time of Evaluation 1050 Subjective Subjective: No Chest Pain, No shortness of breath, No Palpitations Vitals Vitals Vital Signs Date Time Temp Pulse Resp B/P (MAP) Pulse Ox O2 Delivery O2 Flow Rate FiO2 04/01/21 10:50 Nasal Cannula 2.0 04/01/21 09:04 99 198/105 04/01/21 07:00 95.0 96 95.0 04/01/21 02:54 18 Weight Weight [ ] Input and Output Intake and Output Intake and Output 04/01/21 07:00 Intake Total 1600 ml Output Total 2175 ml Balance -575 ml Intake Oral 1600 ml Output Urine Total 2175 ml # Bowel Movements 1 Laboratory Labs Laboratory Tests Test 03/31/21 16:46 03/31/21 20:19 04/01/21 09:05 Glucose (Fingerstick) 166 mg/dL (70-99) 187 mg/dL (70-99) 191 mg/dL (70-99) Physical Exam HEENT: Neck Supple W Full Motion Chest: Symmetric LUNGS: Other (basilar crackles) Heart: irregularly irregular (AFIB) Abdomen: Soft N/T Extremities: No Edema, No Calf Tenderness Neurology: alert, oriented, follow commands Assessment Assessment 1. Traumatic mechanical fall: right femoral fracture due to syncope 2. S/P right femoral ORIF 3. AFIB RVR: post op, rate better. EF and WM nml 4. Hx of COPD and LISSA: uses O2 at home 5. HTN: controlled 6. HLP 7. CAD: stent placed 16 yrs ago 8. DM2: per PCP 9. Syncope: Could not ascertain if this is due to hypoglycemia vs arrhythmia. Recommendations 1. Continue toprol. 2. Eliquis for stroke prevention and VTE prophylaxis 3. Secondary prevention measures. Continue low dose ECASA 4. Follow up in office. 5. MCOT if remains in AFIB then outpt CVN would be considered. 6. SNU today Justicifation of Admission Dx: Justifications for Admission: Justification of Admission Dx: Yes GETACHEW SEVERINO MECHANICAL SPREADER OPERATOR Apr 01, 2021 11:58
--- NOTE | 2021-04-02 13:51 | PDOC3 ---
[facility]-Discharge Summary Date of Admission: Date of Admission: Mar 28, 2021 Date of Discharge: Date of Discharge: Apr 01, 2021 Discharge Diagnosis: Discharge Diagnosis: RIght femur fracture status post ORIF 03/29/2021 acute pain, cannot ambulate A. fib RVR in the postop period. History of COPD/OSAon home O2 History of hypertension History of dyslipidemia History of CAD History of diabetes mellitus Consults: Consults: Cardiology consult Assessment 1. Traumatic mechanical fall: right femoral fracture due to syncope 2. S/P right femoral ORIF 3. AFIB RVR: post op, rate better. presently with intermittent PVCs. EF and WM nml 4. Hx of COPD and LISSA: uses O2 at home 5. HTN: controlled 6. HLP 7. CAD: stent placed 16 yrs ago 8. DM2: per PCP 9. Syncope: Could not ascertain if this is due to hypoglycemia vs arrhythmia. Recommendations 1. Change to toprol. BMP and Mg pending today. Replace K and Mg as warranted 2. Eliquis for stroke prevention and VTE prophylaxis 3. Secondary prevention measures. Continue low dose ECASA 4. Follow up in office. 5. Will consider [facility] otherwise if remains in AFIB then outpt CVN would be considered. 6. SNU eval. Hospital Course: Hospital Course: By day of discharge patient was working well with PT OT and will be transferred to a rehab [facility]. Rest of hospital course was uneventful. 03/31/2021 No acute events overnight. Patient seen and examined bedside. Working well of physical therapy. Patient accepted at [facility] for tomorrow. Patient will need to continue with Eliquis, aspirin, and metoprolol. 03/30/2021 No acute events overnight. Patient tolerated surgery well without any major complications. Pain is moderately well controlled. Patient is waiting for p.o. pain medications. Pending PT OT evaluation, likely will need SNF placement. Ortho recommended weightbearing as tolerated. Okay for Eliquis with Ortho and cardiology. In addition to my E/M visit, advance care planning done with A total time of 20 minutes was spent from 11:00 to 1120 face to face in discussion regarding the patient's goals of care, CODE STATUS. 03/29 Patient eval and examined at bedside. Surgery planned for today. Patient was pleasant prior to surgery when seen. Will follow up again after surgery. 80-year-old male admit jonathan after a fall. Family estimates that he fell last night about midnight. He had his left hip replaced about 15 years ago, and today presents wtih acute right hip pain after this fall and he cannot ambulate. Walks with a cane or walker at baseline, still does his own finances, hasnt driven in a few years due to not having a car, family takes him on his errands from his senior high- rise Disposition: Disposition/Orders: D/C to Another Facility Activity: Activity: Resume previous activity Medications: Home Meds Active Scripts Aspirin (ASPIRIN EC) 81 Mg Tablet.dr, 81 MG PO DAILYWBKFT for secondary heart prevention for 30 Days, #30 TAB.SR 2 Refills Prov:MALI UMANZOR MD 03/31/21 Metoprolol Succinate (Toprol XL) 50 Mg Tab.er.24h, 75 MG PO DAILY for heart rate for 30 Days, #45 TAB.SR 2 Refills Prov:MALI UMANZOR MD 03/31/21 Apixaban (ELIQUIS) 5 Mg Tablet, 5 MG PO BID for afib and dvt prophylaxis for 30 Days, #60 TAB Prov:MALI UMANZOR MD 03/31/21 Hydrocodone Bit/Acetaminophen (HYDROCODONE-APAP 5-325 ) 1 Each Tablet, 1 TAB PO PRN Q6HRS PRN for PAIN for 3 Days, #12 TAB 0 Refills Prov:MALI UMANZOR MD 03/31/21 Prednisone (PREDNISONE ) 10 Mg Tablet, 10 MG PO UD for PREDNISONE TAPER, #30 TAB 0 Refills take 4 tabs daily for 3 days, then decrease by 1 pill every 3 days until gone Prov:AMBIKA PHILLIPS MD 10/19/16 Benzonatate (BENZONATATE) 100 Mg Capsule, 100 MG PO [id number], #60 CAP Prov:AMBIKA PHILLIPS MD 10/19/16 Reported Medications Albuterol Sulfate (PROAIR HFA INHALER) 8.5 Gm Hfa.aer.ad, 1 PUFF INH PRN Q6HRS PRN for SHORTNESS OF BREATH, INHALER 0 Refills 10/17/16 Omeprazole Magnesium (PRILOSEC OTC) 20 Mg Tablet.dr, 1 TAB PO DAILY, #30 TAB 3 Refills 10/17/16 Umeclidinium [place] (Incruse Ellipta) 62.5 Mcg Blst.w.dev, 62.5 MCG IH DAILY 10/17/16 Glimepiride (GLIMEPIRIDE) 1 Mg Tablet, 1 TAB PO DAILY, #30 TAB 5 Refills 10/17/16 Simvastatin (SIMVASTATIN) 20 Mg Tablet, 20 MG PO 08/17/13 Cyclobenzaprine Hcl (CYCLOBENZAPRINE HCL) 10 Mg Tablet, 10 MG PO 08/17/13 Discontinued Reported Medications Carvedilol (CARVEDILOL) 25 Mg Tablet, 25 MG PO BID 08/17/13 Scheduled Apixaban (Eliquis), 5 MG PO BID Aspirin (Aspirin Ec), 81 MG PO DAILYWBKFT Benzonatate (Benzonatate), 100 MG PO [id number] Glimepiride (Glimepiride), 1 TAB PO DAILY, (Reported) Metoprolol Succinate (Toprol XL), 75 MG PO DAILY Omeprazole Magnesium (Prilosec Otc), 1 TAB PO DAILY, (Reported) Prednisone (Prednisone ), 10 MG PO UD Umeclidinium [place] (Incruse Ellipta), 62.5 MCG IH DAILY, (Reported) Scheduled PRN Albuterol Sulfate (Proair Hfa Inhaler), 1 PUFF INH PRN Q6HRS PRN for SHORTNESS OF BREATH, (Reported) Hydrocodone Bit/Acetaminophen (Hydrocodone-Apap 5-325 ), 1 TAB PO PRN Q6HRS PRN for PAIN Miscellaneous Medications Cyclobenzaprine Hcl (Cyclobenzaprine Hcl), 10 MG PO, (Reported) Simvastatin (Simvastatin), 20 MG PO, (Reported) Discontinued Medications Carvedilol (Carvedilol), 25 MG PO BID, (Reported) Total Time: Total Time: Total time spent was 33 minutes in preparing scripts, discharge planning with SWI and RN and preparing this discharge summary Patient seen and examined on day of discharge. No acute abnormal findings. Justicifation of Admission Dx: Justifications for Admission: Justification of Admission Dx: Yes MALI UMANZOR MD Apr 02, 2021 13:51
== END 2021-04-01 11:15 | DRG 481 ==
LOC: ER 13:24 → ED HOLD 18:27 → 6 SOUTH 18:27 → 4 NORTH 21:00 → 6 SOUTH 03-29 23:17
PROVIDERS: ADMIT Internal Medicine; ATTEND Internal Medicine
PROC: 0QS606Z Reposition Right Upper Femur with Intramedullary Internal Fixation Device, Open Approach (ICD-10-PCS; principal; 2021-03-29 12:00)
DX: S72.141A Displaced intertrochanteric fracture of right femur, initial encounter for closed fracture (principal); R65.10 Systemic inflammatory response syndrome (SIRS) of non-infectious origin without acute organ dysfunction; E11.9 Type 2 diabetes mellitus without complications; E55.9 Vitamin D deficiency, unspecified; E78.5 Hyperlipidemia, unspecified; E86.0 Dehydration; G47.33 Obstructive sleep apnea (adult) (pediatric); I10 Essential (primary) hypertension; I25.10 Atherosclerotic heart disease of native coronary artery without angina pectoris; I48.91 Unspecified atrial fibrillation; I49.3 Ventricular premature depolarization; J44.9 Chronic obstructive pulmonary disease, unspecified; Z82.49 Family history of ischemic heart disease and other diseases of the circulatory system; Z87.11 Personal history of peptic ulcer disease; Z87.81 Personal history of (healed) traumatic fracture; Z87.891 Personal history of nicotine dependence; Z90.49 Acquired absence of other specified parts of digestive tract; Z91.81 History of falling; Z95.5 Presence of coronary angioplasty implant and graft; Z96.642 Presence of left artificial hip joint; K57.90 Diverticulosis of intestine, part unspecified, without perforation or abscess without bleeding; M19.90 Unspecified osteoarthritis, unspecified site; W18.39XA Other fall on same level, initial encounter; Y93.89 Activity, other specified; Y92.89 Other specified places as the place of occurrence of the external cause; Y99.8 Other external cause status
CPT/HCPCS: 36415; 70450; 71045; 71260; 72125; 73502; 73552; 73560; 74177; 76000; 80048; 80053; 80307; 81001; 82306; 82962; 83036; 83735; 83880; 84443; 84484; 85007; 85014; 85018; 85025; 85027; 85610; 85730; 87426; 93005; 93306; 94640; 94760; 96361; 96374; 96375; A4930; A6223; A6253; A6402; C1713; C1769; J0171; J0696; J1100; J1170; J1815; J1885; J2060; J2270; J2405; J2704; J2795; J3010; J3475; J3490; J7030; Q9967; U0003; U0005; 97110-GP; 97530-GO; 97530-GP; 97535-GO; 99285-25; G0378; J7613; J7626